=== PATIENT | male | born 1985 | race Hispanic/Latino ===

== ENCOUNTER 2017-10-29 12:08 | Inpatient (IN) | payer SELFPAY ==
[2017-10-29 12:51] LABS: #Lymphocytes 0.8 thou/uL (1.20-3.40); #Monocytes 0.3 thou/uL (0.11-0.59); #Neutrophils 5.3 thou/uL (1.40-6.50); %Basophils 0.2 % (0.0-1.0); %Eosinophils 0.1 % (0.0-10.0); %Lymphocytes 12.7 % (21.0-51.0); %Monocytes 4.6 % (0.0-10.0); Hematocrit 44.5 % (42.0-52.0); Mean Platelet Volume 7.3 fL (7.4-10.4); Red Blood Cell (RBC) Count 4.52 mill/uL (4.70-6.10); White Blood Cell (WBC) Count 6.4 thou/uL (4.8-10.8)
[2017-10-29 13:09] LABS: ALT (SGPT) 114 U/L (8-55); AST (SGOT) 184 U/L (5-34); Alkaline Phosphatase 147 U/L (40-150); Anion Gap 15 mmol/L (10-20); BUN (Urea Nitrogen) 7 mg/dL (8.9-20.6); Bilirubin, Total 0.7 mg/dL (0.2-1.2); Calc. Creatinine Clearance 0 mL/min (70-130); Calcium 9.5 mg/dL (7.8-10.44); Carbon Dioxide 30 mmol/L (22-29); Chloride 96 mmol/L (98-107); Estimated GFR-MDRD Greater than 90; Globulin 3.8 g/dL (2.4-3.5); Protein, Total 8.2 g/dL (6.0-8.3)
[2017-10-29] MEDS ORDERED: Morphine 4 MG/ML VIAL ONE (13:15)
[2017-10-29] MEDS ORDERED: Ondansetron HCl/PF 4 MG/2 ML Vial ONE (13:15)
[2017-10-29 13:22] LABS: Lipase 2036 U/L (8-78)
[2017-10-29 13:26] LABS: Prothrombin Time 13.8 SEC (12.0-14.7)
[2017-10-29 13:27] LABS: PTT 30.9 SEC (22.9-36.1)
[2017-10-29 13:29] LABS: Troponin I Less than 0.010 ng/mL (< 0.028)
[2017-10-29 13:31] LABS: Bilirubin Small (Negative); Blood, Urine Negative (Negative); Glucose, Urine (Dipstick) Negative (Negative); Ketone, Urine Trace mg/dL (Negative); Nitrite Negative (Negative); Protein, Urine (Dipstick) 100 mg/dL (Neg-Trace)
[2017-10-29 13:33] LABS: Bacteria/HPF None Seen HPF (None Seen); Hyaline Casts/LPF 4-6 HYALINE CAST LPF (0-3 Hyaline); RBC/HPF 0-3 HPF (0-3); Squamous Epithelial 0-3 HPF (0-3); WBC/HPF 0-3 HPF (0-3)
--- NOTE | 2017-10-29 14:27 | ULT ---
GALLBLADDER ULTRASOUND: HISTORY: Abdominal pain. Pancreatitis. FINDINGS: Real-time images of the upper abdomen were performed that show a normal-appearing gallbladder. The c ommon duct is 2-3 mm. Technologist reports a negative ultrasound Santana's sign. The liver shows fatty change that measures 18 cm in length. The right kidney is normal in size and n ot obstructed. Pancreas is fairly well visualized. The pancreatic tail is obscured. No abnormaliti es are seen. IMPRESSION: 1. Fatty changes of the liver. 2. No evidence of gallstones. POS: [facility]
--- NOTE | 2017-10-29 14:52 | CT ---
CT ABDOMEN AND PELVIS WITH IV CONTRAST: HISTORY: Abdominal pain. Pancreatitis. FINDINGS: No comparison. The lung bases are clear. Stranding within the central abdomen is centered around the pancreas with a small amount of free fluid adjacent to the pancreas. At the level of the pancreatic head, there is a focal rounded low-density lesion that is 0.6 cm diameter. This may represent a small pancreatic c yst or choledochocele. No intrahepatic biliary dilatation is evident. The spleen, kidneys, and adre nal glands are within normal limits. Non-specific lymph nodes are scattered throughout the retroperit oneum. Urinary bladder is incompletely distended. IMPRESSION: Acute pancreatitis. POS: [facility]
[2017-10-29] MEDS ORDERED: ISOVUE-370 76%-LOCM 1 ML ONE (15:53)
[2017-10-29 16:50] VITALS: BMI 25.0
[2017-10-29] MEDS ORDERED: Ondansetron ODT 4 MG TAB PO PRN (16:57)
[2017-10-29] MEDS: Nicotine 14 MG PATCH TD SCH (17:28)
[2017-10-29] MEDS ORDERED: Morphine 4 MG/ML VIAL SLOW IVP PRN (18:00)
[2017-10-29] MEDS: Sodium Chloride 0.9% 1,000 ML IV SCH (18:35)
[2017-10-29] MEDS: Multivitamins, Adult 10 ML, Folic Acid 1 MG, Thiamine HCl 100 MG in Dextrose 5 %-0.45 %... IV SCH ×4 (18:36)
--- NOTE | 2017-10-29 23:33 | HP-2 ---
DATE OF ADMISSION: 10/29/2017 DATE OF SERVICE: 10/29/2017 CODE STATUS: FULL. PRIMARY CARE PHYSICIAN: None. ATTENDING: Dr. Jana Danielle. PGY1: Dr. Anali Moss. HISTORIAN: Patient. CHIEF COMPLAINT: Abdominal pain. HISTORY OF PRESENT ILLNESS: A 32-year-old male with no past medical history, who presents with acute abdominal pain that started this morning. The patient said he woke up this morning, had one beer an d experienced acute, sharp, constant pain in the midepigastric region and also radiating to the left side. The patient also had one episode of watery, nonbloody diarrhea. The patient states he has nev er had this type of abdominal pain before. He did not take anything for the pain. He denies nausea and vomiting. He says his last drink was this morning, which he had one beer. In the ER, the patient had 1 liter of normal saline, 4 mg IV morphine and Zofran. PAST MEDICAL HISTORY: The patient reports a history of seizures, one of which he says was from alcoh ol withdrawal, which was about 1.5 years ago. PAST SURGICAL HISTORY: The patient had a corneal abrasion. ALLERGIES: None. MEDICATIONS: None. FAMILY HISTORY: Hypertension and diabetes in his paternal grandparents. SOCIAL HISTORY: He states he drinks 6-pack a day, but will often drink more than on the weekends. D enies drug use. Has a 6-pack year smoking history. REVIEW OF SYSTEMS: General: Denies fevers and chills. Denies weight changes or sleep changes or ni ght sweats. Respiratory: Denies cough, congestion, shortness of breath. Cardiovascular: Denies ch est pain, palpitations. GI: Denies nausea and vomiting, endorses one episode of watery diarrhea. E ndorses abdominal pain. Denies constipation. Genitourinary: Denies dysuria. Skin: Denies rashes, itching or jaundice. Musculoskeletal: Denies pain in his bilateral upper and lower extremities. N eurologic: Denies weakness, numbness, syncope. Endorses some tremulous tremors bilaterally in his h ands. Psychiatric: Denies anxiety or depression. PHYSICAL EXAMINATION: VITAL SIGNS: Blood pressure 113/64, pulse is 73, respiratory rate 20, T-max 98.5, pulse ox 98% on ro om air, current weight 75 kilograms. GENERAL: Alert and oriented x3, in no apparent distress, thin, appropriately interactive. EYES: Pupils are equal, round and reactive to light and accommodation. Extraocular muscles are inta ct. ENT: Nasal mucosa within normal limits. Oropharynx within normal limits. NECK: Supple, no lymphadenopathy or thyromegaly. CARDIOVASCULAR: Regular rate and rhythm. No murmurs, rubs or gallops appreciated, 2+ radial and ped al pulses bilaterally. RESPIRATORY: Normal effort. Clear to auscultation bilaterally. No retractions. No wheezing, rhonc hi, or rales. ABDOMEN: Soft, tender to palpation in the midepigastric region and the left upper quadrant. Hypoact amina bowel sounds. No masses or distention. MUSCULOSKELETAL: Structure within normal limits. NEUROLOGIC: No focal deficits. Cranial nerves II-XII intact. GCS of 15. PSYCHIATRIC: Appropriate. LABORATORY DATA: CBC: White blood cell count 6.4, hemoglobin 15, hematocrit 44.5, platelets 51. CMP: Sodium 137, potassium 4, chloride 96, bicarbonate 30, BUN 7, creatinine 0.67, glucose 116, AST 184, ALT 114, LDH 264. Coag panel: PT 13.8, INR 1, PTT 30.9. Lipase 2036. CK 137, CK-MB 1. Troponin less than 0.01. UA: Protein 100, leukocyte esterase trace, ketones trace, white blood cells 0-3, bacteria none. Glu cose, red blood cells, nitrites and blood were negative. Bilirubin small. Right upper quadrant abdominal ultrasound: No evidence of gallstones. Evidence of fatty liver carcamo es. Abdominal CT: Evidence of pancreatitis with stranding in the central abdomen with a small amount of free fluid. ASSESSMENT AND PLAN: A 32-year-old male with past medical history of alcohol use, status post 1 seiz ure episode from alcohol withdrawal, presents with acute onset abdominal pain with a lipase of 2035, admitted for acute pancreatitis and alcohol withdrawal. 1. Acute pancreatitis. The patient was made n.p.o. The patient was placed on maintenance fluids at 150 mL an hour of normal saline. The patient was provided with 1 liter of fluid bolus in the ER. H e was provided with morphine 2 mg q.2 hours p.r.n. As mentioned before, right upper quadrant and abd ominal CT were done, showing no evidence of gallstone or acute pancreatitis. The patient was made n. p.o. overnight for a bowel rest. A lipid panel, hepatitis C, HIV, RPR were all ordered. The patient was provided with Zofran and Phenergan p.r.n. for nausea. 2. Alcohol withdrawal. The patient was placed on ASE protocol, was provided with Ativan 1 mg q.4 ho urs p.r.n. The patient will be managed with CIWA protocol as well. He was provided with a banana ba g. 3. Acute fatty liver disease. The patient had elevated liver enzymes, AST 186, ALT 114. The patien t was educated on the effects of alcohol abuse on the liver. We will continue to monitor the patient 's labs. 4. Thrombocytopenia secondary to alcohol abuse causing bone marrow suppression. We will continue to trend his platelets with daily CBCs. DISPOSITION AND LENGTH OF HOSPITAL STAY: Two days. Symptomatic medications will be provided. History and physical exam as well as management was discussed with Dr. Jana Danielle.
[2017-10-30] MEDS: Sodium Chloride 0.9% 1,000 ML IV SCH ×4 (01:23→23:23)
[2017-10-30] MEDS: Lorazepam 2 MG/ML VIAL SLOW IVP PRN (05:01)
[2017-10-30 05:11] LABS: #Lymphocytes 0.4 thou/uL (1.20-3.40); #Monocytes 0.3 thou/uL (0.11-0.59); #Neutrophils 2.8 thou/uL (1.40-6.50); %Eosinophils 0.2 % (0.0-10.0); %Lymphocytes 12.1 % (21.0-51.0); %Monocytes 8.1 % (0.0-10.0); Hematocrit 41.4 % (42.0-52.0); Mean Platelet Volume 7.5 fL (7.4-10.4); White Blood Cell (WBC) Count 3.6 thou/uL (4.8-10.8)
[2017-10-30 05:19] LABS: ALT (SGPT) 77 U/L (8-55); LDH 186 U/L (125-220)
[2017-10-30 05:23] LABS: Anion Gap 15 mmol/L (10-20); BUN (Urea Nitrogen) 6 mg/dL (8.9-20.6); Calc. Creatinine Clearance 141 mL/min (70-130); Calcium 9.4 mg/dL (7.8-10.44); Carbon Dioxide 26 mmol/L (22-29); Chloride 96 mmol/L (98-107); Estimated GFR-MDRD Greater than 90; Magnesium 1.7 mg/dL (1.6-2.6)
[2017-10-30 05:31] LABS: Phosphorus 1.9 mg/dL (2.3-4.7)
[2017-10-30 05:50] LABS: Lipase 1263 U/L (8-78)
--- NOTE | 2017-10-30 06:56 | PDOC.FM ---
- Subjective Subjective: Patient is doing well this morning without anxiety. Abdominal pain is mild. No N/V. - Objective MAR Reviewed: Yes Vital Signs & Weight: Vital Signs (12 hours) Temp Pulse Resp BP BP Pulse Ox 10/30/17 03:34 98.5 F 71 18 129/78 97 10/30/17 00:00 98.1 F 71 18 128/78 129/78 97 10/29/17 21:08 99 F 80 18 123/75 97 10/29/17 20:00 99 F 80 18 123/75 97 I&O: 10/28/17 10/29/17 10/30/17 06:59 06:59 06:59 Intake Total 1800 Balance 1800 Result Diagrams: 10/30/17 04:37 10/30/17 04:37 Phys Exam - Physical Examination Constitutional: NAD HEENT: moist MMs, sclera anicteric, oral pharynx no lesions Neck: no nodes, no JVD Respiratory: no wheezing, no rales, no rhonchi, clear to auscultation bilateral Cardiovascular: RRR, no significant murmur Gastrointestinal: soft mild guarding, moderate tenderness in epigastric and LUQ tenderness Musculoskeletal: no edema Neurological: moves all 4 limbs No asterixis, no tremors Psychiatric: A&O x 3 Skin: cap refill <2 seconds Dx/Plan (1) Acute pancreatitis Code(s): K85.90 - ACUTE PANCREATITIS WITHOUT NECROSIS OR INFECTION, UNSP Status: Acute (2) Alcohol withdrawal syndrome Code(s): F10.239 - ALCOHOL DEPENDENCE WITH WITHDRAWAL, UNSPECIFIED Status: Acute (3) Thrombocytopenia Code(s): D69.6 - THROMBOCYTOPENIA, UNSPECIFIED Status: Acute (4) Elevated transaminase level Code(s): R74.0 - NONSPEC ELEV OF LEVELS OF TRANSAMNS & LACTIC ACID DEHYDRGNSE Status: Acute - Plan Plan: Acute Pancreatitis - NPO for 24 hours, will advance to clears at lunch - IVF as long as NPO - morphine for pain Alcohol Dependence - encourage cessation - CM to provide resources - ASE protocol Fatty Liver with Elevated Transaminases - encourage ETOH cessation - educate on progression Thrombocytopenia - likely 2/2 ETOH suppression of Bone marrow Macrocytosis - B12, folate pending Hypophosphatemia - replace and recheck - 2/2 chronic alcohol use
[2017-10-30] MEDS ORDERED: FLU VACC QS2017-18 36 mo. & older 0.5 ML SYRINGE IM ONE (09:00)
--- NOTE | 2017-10-30 14:40 | ADD-PRG ---
DATE OF SERVICE: 10/30/2017 Please add it as an addendum to the note of Dr. Denita Antonio. Mr. Franklin looks and feels much better th is morning. He was admitted yesterday with acute pancreatitis secondary to alcohol. He also has fat ty liver demonstrated on ultrasound with elevations of his AST and ALT. We had a long discussion abo ut his drinking and the fact that it would destroy his liver if it continues. In the event, he feels better this morning, and we will begin to give him clear liquids later today. His pain is much abat ed. He is not nauseated.
[2017-10-30] MEDS: Multivitamins, Adult 10 ML, Folic Acid 1 MG, Thiamine HCl 100 MG in Dextrose 5 %-0.45 %... IV SCH ×4 (17:24)
[2017-10-30] MEDS: Nicotine 14 MG PATCH TD SCH (17:25)
[2017-10-31] MEDS: Lorazepam 2 MG/ML VIAL SLOW IVP PRN ×5 (04:18→23:24)
[2017-10-31] MEDS: Sodium Chloride 0.9% 1,000 ML IV SCH ×3 (05:44→15:12)
[2017-10-31 05:53] LABS: Anion Gap 11 mmol/L (10-20); BUN (Urea Nitrogen) 4 mg/dL (8.9-20.6); Calc. Creatinine Clearance 170 mL/min (70-130); Carbon Dioxide 27 mmol/L (22-29); Chloride 99 mmol/L (98-107); Estimated GFR-MDRD Greater than 90; Magnesium 1.9 mg/dL (1.6-2.6); Phosphorus 2.2 mg/dL (2.3-4.7)
[2017-10-31 06:04] LABS: #Lymphocytes 0.5 thou/uL (1.20-3.40); #Monocytes 0.4 thou/uL (0.11-0.59); #Neutrophils 2.7 thou/uL (1.40-6.50); %Basophils 0.2 % (0.0-1.0); %Eosinophils 0.9 % (0.0-10.0); %Lymphocytes 12.5 % (21.0-51.0); %Monocytes 11.6 % (0.0-10.0); Red Blood Cell (RBC) Count 3.83 mill/uL (4.70-6.10); White Blood Cell (WBC) Count 3.6 thou/uL (4.8-10.8)
--- NOTE | 2017-10-31 06:24 | PDOC.FM ---
- Subjective Subjective: Patient is doing well this morning. He reports only mild abdominal pain with movements but not increased with food intake. Has tolerated a clear liquid diet yesterday. Does report some diarrhea today. Otherwise, denies anxiety, CP , trouble walking, and reports he wants to go home. - Objective MAR Reviewed: Yes Vital Signs & Weight: Vital Signs (12 hours) Temp Pulse Resp BP BP Pulse Ox 10/31/17 03:54 131/67 10/31/17 03:11 98.6 F 70 16 131/67 97 10/31/17 00:00 126/70 10/30/17 23:21 98.9 F 64 16 126/70 97 10/30/17 20:00 98.7 F 83 16 132/78 10/30/17 18:55 98.7 F 83 16 132/78 97 I&O: 10/29/17 10/30/17 10/31/17 06:59 06:59 06:59 Intake Total 1800 3750 Balance 1800 3750 Result Diagrams: 10/31/17 05:17 10/31/17 05:17 Phys Exam - Physical Examination Constitutional: NAD HEENT: PERRLA, sclera anicteric Neck: no nodes, no JVD Respiratory: no wheezing, no rales, no rhonchi, clear to auscultation bilateral Cardiovascular: RRR, no significant murmur Gastrointestinal: soft, non-tender, no distention, positive bowel sounds Musculoskeletal: no edema, pulses present Neurological: non-focal, normal sensation, moves all 4 limbs mild tremors Psychiatric: normal affect, A&O x 3 Skin: cap refill <2 seconds Dx/Plan (1) Acute pancreatitis Code(s): K85.90 - ACUTE PANCREATITIS WITHOUT NECROSIS OR INFECTION, UNSP Status: Acute (2) Alcohol withdrawal syndrome Code(s): F10.239 - ALCOHOL DEPENDENCE WITH WITHDRAWAL, UNSPECIFIED Status: Acute (3) Thrombocytopenia Code(s): D69.6 - THROMBOCYTOPENIA, UNSPECIFIED Status: Acute (4) Elevated transaminase level Code(s): R74.0 - NONSPEC ELEV OF LEVELS OF TRANSAMNS & LACTIC ACID DEHYDRGNSE Status: Acute - Plan Plan: Acute Pancreatitis - NPO for 24 hours, will advance to clears at lunch - IVF as long as NPO - morphine for pain Alcohol Dependence - encourage cessation - CM to provide resources - ASE protocol Fatty Liver with Elevated Transaminases - encourage ETOH cessation - educate on progression Thrombocytopenia - likely 2/2 ETOH suppression of Bone marrow Macrocytosis - B12, folate pending Hypophosphatemia - replace and recheck - 2/2 chronic alcohol use
[2017-10-31] MEDS ORDERED: Potassium Chloride 20 MEQ TAB PO SCH (06:30)
[2017-10-31 06:45] LABS: ALT (SGPT) 58 U/L (8-55); AST (SGOT) 77 U/L (5-34); Alkaline Phosphatase 95 U/L (40-150); Bilirubin, Direct 0.8 mg/dL (0.1-0.3); Bilirubin, Total 1.7 mg/dL (0.2-1.2); Protein, Total 6.7 g/dL (6.0-8.3)
[2017-10-31] MEDS ORDERED: Diazepam 10 MG/2 ML SYRINGE IVP SCH ×2 (12:30→14:15)
[2017-10-31] MEDS: Diazepam 10 MG/2 ML SYRINGE IVP PRN ×4 (13:21→23:55)
--- NOTE | 2017-10-31 14:21 | ADD-PRG ---
ADDENDUM: 10/31/2017 This is an addendum to the note of Dr. Denita Antonio. Mr. Franklin is completely awake and alert this morn ing. Was slightly tremulous last night, but this responded very well to one dose of Ativan. He is t olerating a regular diet and has no abdominal pain or nausea. He will be discharged today.
--- NOTE | 2017-10-31 14:27 | PDOC.EVN ---
Event Note - Event Note Event Note: Was notified around 1215 of patient having increased agitation, mildly combative behavior, tachycardia, diaphoresis, and visual hallucinations. Patient threw all of his bed linens off due to seeing bugs all over the place. When I went to observe the patient, he is mildly hypertensive, tachycardic, and agitated. Calculated CIWA score of 23. Patient was given 5mg Valium IV then checked on 15 min later where his CIWA score remained 23. He was then given 10mg Valium IV. Again, patient was checked on about thirty minutes later, and still has CIWA score of 21. At this time, we will give 5mg Valium IV and transfer to ICU with past hx of alcohol withdrawal seizures. Patient will require 1 on 1 attention and may need a sitter.
--- NOTE | 2017-10-31 17:20 | ADD-PRG ---
ADDENDUM: 10/31/2017 This is an addendum to the event note of Dr. Denita Antonio. We had been on morning rounds this morning with Mr. Franklin. At that time, he was awake, alert, and in no distress. He was not "fidgety," anxiou s or tachycardic. We were arranging for his discharge from the hospital. At approximately 12:15, garrett, we were called and told the patient was very agitated, diaphoretic, tachycardic, and was havin g visual hallucinations and that he was seeing bugs on his bed. These symptoms were quite consistent with delirium tremens. He was given several dosages of intravenous Valium, but maintained a relativ sophia high CIWA score of 23. It was then elected to transfer him to the MICU for telemetry, closer obs ervation and possibly arranging the presence of a sitter. I examined Mr. Franklin at approximately 4:00 this afternoon. By that time, the hallucinations had cease d. He was still slightly anxious and agitated, but cooperative and in no other acute distress. His vital signs at that time, blood pressure was 120/70, respirations were 20, pulse rate was 100, temper ature was 99.7. Cardiac: His heart rhythm is regular. Rate is approximately 90. Lungs: Clear to auscultation. No rales or wheezes. No respiratory distress. Abdomen: Flat and soft. No guarding, rebound or rigidity. No epigastric pain. From a neurological standpoint, he has no focal deficits. He is alert and oriented. He appears slig htly anxious, but answers questions appropriately. He is, at this time, not having visual hallucinat ions. ASSESSMENT: Delirium tremens. PLAN: Transfer to ICU. Continue to use high dosages of benzos if needed to control symptoms. Reche ck electrolytes, monitor on telemetry. Consider anti-seizure medication as he does have a history of alcohol withdrawal seizures.
[2017-10-31] MEDS: Nicotine 14 MG PATCH TD SCH (19:18)
[2017-10-31] MEDS: Multivitamins, Adult 10 ML, Folic Acid 1 MG, Thiamine HCl 100 MG in Dextrose 5 %-0.45 %... IV SCH ×4 (19:53)
[2017-11-01] MEDS: Diazepam 10 MG/2 ML SYRINGE IVP PRN ×3 (00:19→12:48)
[2017-11-01] MEDS: Sodium Chloride 0.9% 1,000 ML IV SCH ×3 (01:00→05:34)
[2017-11-01] MEDS ORDERED: Succinylcholine Chloride 20 MG/ML 10 ml SYRINGE FS ONE (01:00)
[2017-11-01] MEDS: Promethazine HCl 25 MG/ML VIAL IM PRN (01:00)
[2017-11-01] MEDS: Lorazepam 2 MG/ML VIAL SLOW IVP PRN (01:00)
[2017-11-01] MEDS: Midazolam HCl 2 mg/2 ml Vial ONE ×3 (01:10→01:21)
[2017-11-01] MEDS: Haloperidol Lactate 5 MG/ML VIAL ONE (01:10)
[2017-11-01] MEDS ORDERED: Labetalol HCl 100 MG/20 ML VIAL SLOW IVP PRN (01:19)
[2017-11-01] MEDS ORDERED: Propofol 1,000 MG/100 ML VIAL IV ONE (01:24)
[2017-11-01] MEDS ORDERED: Midazolam HCl 2 mg/2 ml Vial ONE (01:24)
[2017-11-01 02:27] LABS: Oxyhemoglobin 96.7 % (94.0-97.0); Sodium 140 mmol/L (135-148)
[2017-11-01 03:10] LABS: Mechanical Tidal Volume 500 ml; Mode SIMV; Pressure Support 10 cmH2O; Vent YES
--- NOTE | 2017-11-01 04:01 | PDOC.EVN ---
Event Note - Event Note Event Note: Endotracheal Intubation Indication and Summary Residents paged to the bedside at approximately 0100. Patient was becoming increasingly agitated despite q15 min administration of IV diazepam and ativan. He was thrashing despite 4-point soft restraints and required approximately 6 nursing staff at the bedside in order to keep him in the bed and from pulling out his IVs. Patient was diaphoretic and pulse climbed to 180s-190s bpm. He was having visual and auditory hallucinations, was combative and urinated on himself at which point versed and haldol were administered IV with temporary sedation. At that time, it was decided by primary team with nursing input that patient required intubation in order to protect his airway and provide adequate sedation and alcohol withdrawl treatment. ET tube intubation was performed with propofol and succinylcholine induction and he was started on propofol and versed drip. His pulse quickly lowered to the low 100s and blood pressure normalized. Dr. Ziegler was notified and Dr. Gutiérrez was at the bedside for intubation.
[2017-11-01] MEDS ORDERED: Sedation Protocol FS ONE (04:20)
[2017-11-01] MEDS ORDERED: Fentanyl 20 MCG/ML 250 ML IVPB SCH (04:29)
[2017-11-01] MEDS ORDERED: DISCONTINUE PREVIOUS NARCOTIC PAIN MEDICATIONS AND BENZODIAZEPINES FS SCH (04:29)
[2017-11-01] MEDS ORDERED: Morphine 4 MG/ML VIAL IV PRN ×2 (04:30→04:31)
[2017-11-01 04:47] LABS: #Lymphocytes 0.7 thou/uL (1.20-3.40); #Monocytes 0.4 thou/uL (0.11-0.59); #Neutrophils 2.4 thou/uL (1.40-6.50); %Basophils 0.6 % (0.0-1.0); %Eosinophils 0.8 % (0.0-10.0); %Lymphocytes 19.7 % (21.0-51.0); Hematocrit 38.2 % (42.0-52.0); Mean Platelet Volume 8.1 fL (7.4-10.4); Red Blood Cell (RBC) Count 3.89 mill/uL (4.70-6.10); White Blood Cell (WBC) Count 3.6 thou/uL (4.8-10.8)
[2017-11-01 05:02] LABS: Anion Gap 10 mmol/L (10-20); BUN (Urea Nitrogen) Less than 4 mg/dL (8.9-20.6); Calc. Creatinine Clearance 176 mL/min (70-130); Calcium 9.3 mg/dL (7.8-10.44); Carbon Dioxide 25 mmol/L (22-29); Chloride 106 mmol/L (98-107); Estimated GFR-MDRD Greater than 90
[2017-11-01] MEDS ORDERED: Potassium Chloride 40 MEQ in Sodium Chloride 0.45% 1,000 ML IV SCH (06:00)
[2017-11-01] MEDS ORDERED: Potassium Chloride 40 MEQ in Sodium Chloride 0.9% 250 ML 250 ML IVPB SCH ×4 (06:00)
[2017-11-01] MEDS ORDERED: Potassium Chloride 40 MEQ in Premix Bag 1 BAG IVPB SCH (06:15)
--- NOTE | 2017-11-01 06:20 | PDOC.FM ---
- Subjective Subjective: Patient was to be discharged yesterday for acute pancreatitis, but shortly before discharging the patient, patient became agitated with hallucinations present. Patient was medicated for DT's with Valium and transferred to the ICU. Overnight, patient continued to be in severe withdrawal delirium with continuous hallucinations and increased agitation despite high doses of Valium. Due to his severe DT's patient was then sedated with Propofol and Versed and intubated to protect airway. Today, patient is sedated with propofol ggt at 35mg/hr and Versed ggt at 4mg/hr at the time of exam and while examining the patient and became agitated with minimal stimuli. HR is in the 90's at the time of exam. Nurse at bedside gave bolus of propofol and increased ggt back to 40mg/hr. - Objective MAR Reviewed: Yes Vital Signs & Weight: Vital Signs (12 hours) Temp Pulse Resp BP Pulse Ox 11/01/17 06:00 12 11/01/17 04:00 97.9 F 12 154/112 H 11/01/17 02:15 86 11/01/17 02:00 12 11/01/17 00:30 135/94 H 11/01/17 00:15 130/48 L 11/01/17 00:00 98.9 F 10/31/17 23:46 133/68 10/31/17 23:15 133/68 10/31/17 23:00 132/70 10/31/17 22:45 125/82 10/31/17 22:30 125/82 10/31/17 22:15 124/70 10/31/17 22:00 124/70 10/31/17 20:00 99.1 F 81 23 H 150/70 H 100 10/31/17 18:19 99 F 66 22 H Weight Weight 70.307 kg Most Recent Monitor Data Heart Rate from ECG 83 NIBP 127/80 NIBP BP-Mean 98 Respiration from ECG 0 SpO2 100 I&O: 10/30/17 10/31/17 11/01/17 06:59 06:59 06:59 Intake Total 1800 6030 1404.3 Output Total 2845 Balance 1800 6030 -1440.7 Result Diagrams: 11/01/17 03:36 11/01/17 03:36 Phys Exam - Physical Examination sedated, and increased agitation with minimal stimuli Respiratory: no wheezing, no rales, clear to auscultation bilateral tachycardic Gastrointestinal: soft Skin: cap refill <2 seconds Dx/Plan (1) Delirium tremens Code(s): F10.231 - ALCOHOL DEPENDENCE WITH WITHDRAWAL DELIRIUM Status: Acute (2) Alcohol withdrawal syndrome Code(s): F10.239 - ALCOHOL DEPENDENCE WITH WITHDRAWAL, UNSPECIFIED Status: Acute (3) Hypokalemia Code(s): E87.6 - HYPOKALEMIA Status: Acute (4) Thrombocytopenia Code(s): D69.6 - THROMBOCYTOPENIA, UNSPECIFIED Status: Acute (5) Elevated transaminase level Code(s): R74.0 - NONSPEC ELEV OF LEVELS OF TRANSAMNS & LACTIC ACID DEHYDRGNSE Status: Acute (6) Acute pancreatitis Code(s): K85.90 - ACUTE PANCREATITIS WITHOUT NECROSIS OR INFECTION, UNSP Status: Resolved - Plan Plan: Delirium Tremens - continue to try and wean Propofol ggt and Versed ggt as tolerated - banana bag q24h - continue ventilation with SIMV, Ps10, PEEP 5, and O2 30 - Dr. Ziegler consulted, appreciate recs Fatty Liver with Elevated Transaminases - encourage ETOH cessation - LFTs downtrending, will continue to monitor Thrombocytopenia - likely 2/2 ETOH suppression of Bone marrow - improving Macrocytosis - B12 wnl - Folate wnl - likely due to increased number of immature cells being produced by the bone marrow with bone marrow suppression due to alcohol Hypophosphatemia - replace and recheck - 2/2 chronic alcohol use Hypokalemia - 40meq IVP - change IVF to 1/2 NS + KCl @ 120 for 1 bag - recheck BMP this afternoon Acute Pancreatitis, resolved - resolved, patient was not complaining of abdominal pain and tolerated diet prior to intubation for DT's
[2017-11-01] MEDS: Propofol 1,000 MG/100 ML VIAL IV PRN ×5 (06:41→23:34)
[2017-11-01 07:20] LABS: ALT (SGPT) 60 U/L (8-55); AST (SGOT) 78 U/L (5-34); Alkaline Phosphatase 100 U/L (40-150); Bilirubin, Direct 0.6 mg/dL (0.1-0.3); Bilirubin, Total 1.3 mg/dL (0.2-1.2); Protein, Total 6.9 g/dL (6.0-8.3)
[2017-11-01] MEDS ORDERED: CCU Electrolyte Replacement 1 EACH FS ONE (07:23)
[2017-11-01 07:25] LABS: Phosphorus 1.8 mg/dL (2.3-4.7)
[2017-11-01] MEDS ORDERED: Magnesium 2 GM/NS 0.9% 100 ML 2 GM in Premix Bag 1 BAG IVPB PRN (07:33)
[2017-11-01] MEDS ORDERED: Potassium Phosphate 9 MMOL in Sodium Chloride 0.9% 100 ML IVPB PRN (07:33)
[2017-11-01] MEDS ORDERED: Potassium Phosphate 15 MMOL in Sodium Chloride 0.9% 250 ML 250 ML IV PRN (07:33)
[2017-11-01] MEDS ORDERED: Magnesium Oxide 400 MG TAB PO PRN ×2 (07:33)
[2017-11-01] MEDS ORDERED: Potassium Chloride 20 MEQ TAB PO PRN (07:33)
[2017-11-01] MEDS ORDERED: CCU ELECTROLYTE REPLACEMENT PROTOCOL FS PRN (07:33)
[2017-11-01] MEDS ORDERED: Potassium Chloride 40 MEQ in Premix Bag 1 BAG IVPB PRN (07:33)
[2017-11-01] MEDS ORDERED: Potassium Phosphate 12 MMOL in Sodium Chloride 0.9% 250 ML 250 ML IV PRN (07:33)
[2017-11-01 08:01] LABS: Oxyhemoglobin 96.3 % (94.0-97.0); Sodium 143 mmol/L (135-148)
[2017-11-01 08:02] LABS: Modified Allen's Test NOT DONE; Vent YES
[2017-11-01 08:03] LABS: Mechanical Tidal Volume 500 ml; Mode SIMV/PSV; Pressure Support 10 cmH2O
[2017-11-01] MEDS ORDERED: chlordiazePOXIDE HCl 25 MG CAP FS SCH (09:00)
--- NOTE | 2017-11-01 10:36 | RAD ---
PORTABLE CHEST: HISTORY: Evaluation of endotracheal and NG tubes. FINDINGS: Heart size is borderline. The lungs are clear of infiltrates. Endotracheal tube is in satisfactory p osition. There has been placement of an NG tube. The tip is below the hemidiaphragm. IMPRESSION: Endotracheal and NG tubes in satisfactory position. POS: [facility]
--- NOTE | 2017-11-01 10:36 | RAD ---
PORTABLE CHEST: HISTORY: Intubation. FINDINGS: Heart size is borderline and endotracheal tube has been placed and is in satisfactory position. The lungs are clear of infiltrates. IMPRESSION: Endotracheal tube in satisfactory position. POS: [facility]
[2017-11-01] MEDS ORDERED: Potassium Phosphate 9 MMOL in Sodium Chloride 0.9% 100 ML IVPB SCH (11:15)
--- NOTE | 2017-11-01 12:40 | ADD-PRG ---
DATE OF SERVICE: 11/01/2017 This is an addendum to the note of Dr. Denita Antonio. Late yesterday, Mr. Franklin was transferred to the ICU in active delirium tremens. He was treated initi ally with intravenous Valium around midnight became again very agitated and hallucinating. He became to the point where he needed to be intubated to protect airway and to further sedate him. He was ugarte bsequently intubated and placed on propofol drip and is currently on the ventilator this morning. Hi s vital signs appeared stable. Delirium tremens certainly now controlled on the ventilator and propo fol infusion.
[2017-11-01 13:50] LABS: Amphetamine Not Detected (NotDetected); Methadone Not Detected (NotDetected); Methamphetamine Not Detected (NotDetected)
[2017-11-01] MEDS: Nicotine 14 MG PATCH TD SCH (17:40)
[2017-11-01] MEDS ORDERED: Acetaminophen 1,000 MG in Premix Bag 1 BAG IVPB PRN (18:04)
[2017-11-01] MEDS: Multivitamins, Adult 10 ML, Folic Acid 1 MG, Thiamine HCl 100 MG in Dextrose 5 %-0.45 %... IV SCH ×4 (18:19)
[2017-11-01 19:20] LABS: BUN (Urea Nitrogen) Less than 4 mg/dL (8.9-20.6); Calc. Creatinine Clearance 146 mL/min (70-130); Calcium 9.6 mg/dL (7.8-10.44); Carbon Dioxide 27 mmol/L (22-29); Chloride 100 mmol/L (98-107); Estimated GFR-MDRD Greater than 90; Phosphorus 4.1 mg/dL (2.3-4.7)
[2017-11-01] MEDS: Sodium Chloride 0.45% 1,000 ML IV SCH ×2 (19:30→21:36)
--- NOTE | 2017-11-01 20:57 | CON ---
DATE OF CONSULTATION: 11/01/2017 HISTORY OF PRESENT ILLNESS: A 32-year-old male who has been in the hospital since 10/29/2017. He ap parently presented with abdominal pain and was found to have pancreatitis. He began having alcohol w ithdrawal and apparently, extremely combative, last time he was intubated. I was consulted. PAST MEDICAL HISTORY: Reportedly remarkable for alcohol withdrawal, seizure in the past. FAMILY HISTORY: Positive for hypertension and diabetes. SOCIAL HISTORY: He reported to the admitting physician, he drank 6 pack a day, but I suspect that he is drinking at least twice that. REVIEW OF SYSTEMS: Unobtainable. PHYSICAL EXAMINATION: GENERAL: He is sedated and intubated. VITAL SIGNS: Blood pressure 124/68, heart rate 92, respiratory rates in the 20s. HEENT: Pupils react. Sclerae is anicteric. NECK: Supple. LUNGS: Clear. HEART: Regular rhythm. ABDOMEN: Soft. EXTREMITIES: Without asymmetry. LABORATORY DATA: White count 3.6, hemoglobin 13.2, MCV is 98, platelets 63. Sodium 138, potassium 2 .8, chloride 106, bicarbonate 25, BUN less than 4, creatinine 0.6. Liver enzymes are barely elevated . Lipase has been checked since the first and was 1263. IMPRESSION: 1. Pancreatitis secondary to alcoholism, likely chronic pancreatitis. 2. History of alcohol withdrawal seizures. 3. Alcohol withdrawal, this admission. 4. Elevated liver enzymes secondary to alcohol intake. 5. Pancytopenia secondary to chronic heavy alcohol intake, most likely. PLAN: Supportive care, sedation for several days until his alcohol withdrawal windows.
[2017-11-02] MEDS: Sodium Chloride 0.45% 1,000 ML IV SCH ×2 (03:32→05:47)
[2017-11-02 04:34] LABS: ALT (SGPT) 87 U/L (8-55); AST (SGOT) 114 U/L (5-34); Alkaline Phosphatase 107 U/L (40-150); Anion Gap 13 mmol/L (10-20); BUN (Urea Nitrogen) Less than 4 mg/dL (8.9-20.6); Bilirubin, Total 1.5 mg/dL (0.2-1.2); Calc. Creatinine Clearance 149 mL/min (70-130); Calcium 9.2 mg/dL (7.8-10.44); Carbon Dioxide 27 mmol/L (22-29); Chloride 99 mmol/L (98-107); Estimated GFR-MDRD Greater than 90; Globulin 3.7 g/dL (2.4-3.5); Magnesium 1.8 mg/dL (1.6-2.6); Phosphorus 3.7 mg/dL (2.3-4.7); Protein, Total 7.6 g/dL (6.0-8.3)
[2017-11-02 04:43] LABS: #Lymphocytes 1.4 thou/uL (1.20-3.40); #Monocytes 1.1 thou/uL (0.11-0.59); #Neutrophils 6.5 thou/uL (1.40-6.50); %Basophils 0.2 % (0.0-1.0); %Eosinophils 0.2 % (0.0-10.0); %Lymphocytes 15.6 % (21.0-51.0); %Monocytes 12.4 % (0.0-10.0); Hematocrit 42.9 % (42.0-52.0); Mean Platelet Volume 7.1 fL (7.4-10.4); Red Blood Cell (RBC) Count 4.37 mill/uL (4.70-6.10); White Blood Cell (WBC) Count 9.1 thou/uL (4.8-10.8)
[2017-11-02] MEDS: Potassium Chloride 40 MEQ in Sodium Chloride 0.9% 250 ML 250 ML IVPB PRN (05:48)
[2017-11-02] MEDS: Propofol 1,000 MG/100 ML VIAL IV PRN ×4 (05:51→23:35)
--- NOTE | 2017-11-02 07:13 | PDOC.FM ---
- Subjective Subjective: Pt is sedated and on mechanical ventilation. He continues to have periods of agitation despite being sedated. No adverse events overnight. - Objective MAR Reviewed: Yes Vital Signs & Weight: Vital Signs (12 hours) Temp Pulse Resp BP Pulse Ox 11/02/17 06:00 12 11/02/17 04:00 99.4 F 22 H 125/83 11/02/17 03:27 123 H 11/02/17 02:00 14 11/02/17 00:00 100.1 F H 13 11/01/17 23:19 113 H 11/01/17 22:00 12 11/01/17 20:00 16 110/73 11/01/17 19:41 101 F H 121 H 16 97 Weight Weight 70.307 kg Most Recent Monitor Data Heart Rate from ECG 106 NIBP 112/70 NIBP BP-Mean 83 Respiration from ECG 12 SpO2 98 I&O: 11/01/17 11/02/17 11/03/17 06:59 06:59 06:59 Intake Total 1404.3 3303.6 Output Total 2845 2920 Balance -1440.7 383.6 Result Diagrams: 11/02/17 03:53 11/02/17 03:53 <Danay Andujar - Last Filed: 11/02/17 10:22> - Objective Vital Signs & Weight: Vital Signs (12 hours) Temp Pulse Resp BP Pulse Ox 11/02/17 14:00 18 11/02/17 12:00 99.9 F H 24 H 118/55 L 11/02/17 11:39 120 H 109/58 L 11/02/17 10:00 20 11/02/17 08:00 99.4 F 25 H 11/02/17 07:21 99.4 F 104 H 12 98 11/02/17 07:10 105 H 112/70 11/02/17 06:00 12 11/02/17 04:00 99.4 F 22 H 125/83 11/02/17 03:27 123 H Weight Admit Weight 70.307 kg Weight 70.307 kg Most Recent Monitor Data Heart Rate from ECG 123 NIBP 135/60 NIBP BP-Mean 99 Respiration from ECG 18 SpO2 100 I&O: 11/01/17 11/02/17 11/03/17 06:59 06:59 06:59 Intake Total 1404.3 3303.6 0 Output Total 2845 2920 826 Balance -1440.7 383.6 -826 Result Diagrams: 11/02/17 03:53 11/02/17 03:53 <Geovanny Mcdonough - Last Filed: 11/02/17 14:25> Phys Exam - Physical Examination Constitutional: NAD HEENT: PERRLA Neck: no JVD Respiratory: clear to auscultation bilateral tachycardic Gastrointestinal: soft, non-tender Musculoskeletal: no edema sedated Skin: no rash <Danay Andujar - Last Filed: 11/02/17 10:22> Dx/Plan (1) Delirium tremens Code(s): F10.231 - ALCOHOL DEPENDENCE WITH WITHDRAWAL DELIRIUM Status: Acute Plan: Pt remains agitated despite continuous sedation. Remains slightly tachycardic. Will continue sedation and ET intubation until ADDI resolves. (2) Alcohol withdrawal syndrome Code(s): F10.239 - ALCOHOL DEPENDENCE WITH WITHDRAWAL, UNSPECIFIED Status: Acute QualifierTitle: Complication of substance-induced condition: with delirium Qualified Code(s): F10.231 - Alcohol dependence with withdrawal delirium Plan: Same as above. (3) Elevated transaminase level Code(s): R74.0 - NONSPEC ELEV OF LEVELS OF TRANSAMNS & LACTIC ACID DEHYDRGNSE Status: Acute Plan: slight increase in transaminases compared to yesterday, however, not increased compared to admisstion. Will continue to monitor. (4) Thrombocytopenia Code(s): D69.6 - THROMBOCYTOPENIA, UNSPECIFIED Status: Acute Plan: Likely 2/2 to alcohol abuse. Improving. (5) Acute pancreatitis Code(s): K85.90 - ACUTE PANCREATITIS WITHOUT NECROSIS OR INFECTION, UNSP Status: Resolved Plan: Pt was tolerating diet prior to intubation. Will consider trickle feeds as pt is currently NPO. (6) Hypokalemia Code(s): E87.6 - HYPOKALEMIA Status: Acute Plan: Electrolyte replacement protocol in place. <Danay Andujar - Last Filed: 11/02/17 10:22> Attending Addendum - Attending Addendum I personally evaluated the patient and discussed the management with Dr. Andujar. I agree with the History, Examination, Assessment and Plan documented above with any addition or exceptions noted below. Will change IV fluid to NS and give 500ml bolus. Tachycardia may be related to dehydration or DTs. <Geovanny Mcdonough - Last Filed: 11/02/17 14:25>
[2017-11-02] MEDS: Sodium Chloride 0.9% 1,000 ML IV SCH ×2 (10:15→17:48)
[2017-11-02] MEDS ORDERED: Sodium Chloride 0.9% 500 ML IV SCH (10:30)
--- NOTE | 2017-11-02 15:04 | PRG ---
DATE OF SERVICE: 11/02/2017 SUBJECTIVE: Mr. Franklin did hemodynamically okay overnight. OBJECTIVE: VITAL SIGNS: His blood pressure 109/59, heart rate is 116, respiratory rate is in the 20s, oximetry is 100%. LUNGS: Clear. HEART: Regular rhythm. ABDOMEN: Soft. EXTREMITIES: Without asymmetry. Intake and output is positive 383. LABORATORY DATA: White count 9.1, hemoglobin 14.7, platelets 105. Sodium 136, potassium 3.1, chlori de 99, bicarbonate 27, BUN less than 4, creatinine 0.7. IMPRESSION: 1. Respiratory failure associated with alcohol withdrawal. 2. Acute on chronic pancreatitis. 3. Alcoholism. 4. Protein malnutrition (BUN less than 4). PLAN: Continue sedation through with alcohol withdrawal several more days.
[2017-11-02] MEDS: Multivitamins, Adult 10 ML, Folic Acid 1 MG, Thiamine HCl 100 MG in Dextrose 5 %-0.45 %... IV SCH ×4 (16:48)
[2017-11-02] MEDS: Nicotine 14 MG PATCH TD SCH (17:45)
[2017-11-03] MEDS: Sodium Chloride 0.9% 1,000 ML IV SCH ×3 (01:08→22:43)
[2017-11-03 04:48] LABS: #Lymphocytes 0.7 thou/uL (1.20-3.40); #Monocytes 1.1 thou/uL (0.11-0.59); #Neutrophils 7.4 thou/uL (1.40-6.50); %Basophils 0.2 % (0.0-1.0); %Monocytes 12.1 % (0.0-10.0); Hematocrit 40.1 % (42.0-52.0); Mean Platelet Volume 7.1 fL (7.4-10.4); Red Blood Cell (RBC) Count 4.06 mill/uL (4.70-6.10); White Blood Cell (WBC) Count 9.2 thou/uL (4.8-10.8)
[2017-11-03] MEDS: Propofol 1,000 MG/100 ML VIAL IV PRN ×4 (04:58→22:43)
[2017-11-03 05:24] LABS: ALT (SGPT) 57 U/L (8-55); AST (SGOT) 73 U/L (5-34); Alkaline Phosphatase 95 U/L (40-150); Anion Gap 13 mmol/L (10-20); BUN (Urea Nitrogen) 5 mg/dL (8.9-20.6); Bilirubin, Total 1.6 mg/dL (0.2-1.2); Calc. Creatinine Clearance 146 mL/min (70-130); Calcium 8.8 mg/dL (7.8-10.44); Carbon Dioxide 26 mmol/L (22-29); Chloride 100 mmol/L (98-107); Estimated GFR-MDRD Greater than 90; Globulin 3.4 g/dL (2.4-3.5)
[2017-11-03] MEDS: Potassium Chloride 40 MEQ in Sodium Chloride 0.9% 250 ML 250 ML IVPB PRN (06:33)
--- NOTE | 2017-11-03 06:41 | PDOC.FM ---
- Subjective Subjective: Pt continues to be agitated during sedation holidays. He is currently sedated. No adverse events overnight. - Objective MAR Reviewed: Yes Vital Signs & Weight: Vital Signs (12 hours) Temp Pulse Resp Pulse Ox 11/03/17 06:00 12 11/03/17 04:00 99.6 F 21 H 11/03/17 02:28 123 H 11/03/17 02:00 17 11/03/17 00:32 131 H 11/03/17 00:00 99.6 F 21 H 11/02/17 22:00 14 11/02/17 21:48 110 H 11/02/17 19:45 12 11/02/17 19:23 101.2 F H 106 H 12 100 11/02/17 19:00 101.2 F H 11/02/17 18:50 115 H Weight Admit Weight 70.307 kg Weight 70.307 kg Most Recent Monitor Data Heart Rate from ECG 108 NIBP 104/59 NIBP BP-Mean 71 Respiration from ECG 25 SpO2 100 I&O: 11/01/17 11/02/17 11/03/17 06:59 06:59 06:59 Intake Total 1404.3 3303.6 5394.3 Output Total 2845 2920 3185 Balance -1440.7 383.6 2209.3 Result Diagrams: 11/03/17 03:37 11/03/17 03:37 <Danay Andujar - Last Filed: 11/03/17 10:51> - Objective Vital Signs & Weight: Vital Signs (12 hours) Temp Pulse Resp Pulse Ox 11/03/17 12:00 103 F H 27 H 11/03/17 10:00 36 H 11/03/17 08:00 101.1 F H 103 H 18 93 L 11/03/17 06:00 12 11/03/17 04:00 99.6 F 21 H 11/03/17 02:28 123 H 11/03/17 02:00 17 Weight Admit Weight 70.307 kg Weight 70.307 kg Most Recent Monitor Data Heart Rate from ECG 98 NIBP 130/88 NIBP BP-Mean 105 Respiration from ECG 10 SpO2 100 I&O: 11/02/17 11/03/17 11/04/17 06:59 06:59 06:59 Intake Total 3303.6 5394.3 250 Output Total 2920 3185 455 Balance 383.6 2209.3 -205 Result Diagrams: 11/03/17 03:37 11/03/17 03:37 <Geovanny Mcdonough - Last Filed: 11/03/17 13:45> Phys Exam - Physical Examination Respiratory: clear to auscultation bilateral tachycardic Gastrointestinal: soft, no distention Musculoskeletal: no edema Skin: no rash, normal turgor <Danay Andujar - Last Filed: 11/03/17 10:51> Dx/Plan (1) Delirium tremens Code(s): F10.231 - ALCOHOL DEPENDENCE WITH WITHDRAWAL DELIRIUM Status: Acute Plan: Pt remains agitated despite continuous sedation. Remains slightly tachycardic. Will continue sedation and ET intubation until ADDI resolves. Pt spiked temperature of 102 yesterday and is tachycardic, possibly 2/2 DT, however will r/o infectious source. urine cx pending. blood cx ordered today. Will cover with empiric abx. (2) Alcohol withdrawal syndrome Code(s): F10.239 - ALCOHOL DEPENDENCE WITH WITHDRAWAL, UNSPECIFIED Status: Acute QualifierTitle: Complication of substance-induced condition: with delirium Qualified Code(s): F10.231 - Alcohol dependence with withdrawal delirium Plan: Same as above. (3) Elevated transaminase level Code(s): R74.0 - NONSPEC ELEV OF LEVELS OF TRANSAMNS & LACTIC ACID DEHYDRGNSE Status: Acute Plan: improving Will continue to monitor. (4) Thrombocytopenia Code(s): D69.6 - THROMBOCYTOPENIA, UNSPECIFIED Status: Acute Plan: Likely 2/2 to alcohol abuse. Improving. (5) Acute pancreatitis Code(s): K85.90 - ACUTE PANCREATITIS WITHOUT NECROSIS OR INFECTION, UNSP Status: Resolved Plan: Pt was tolerating diet prior to intubation. Will consider trickle feeds as pt is currently NPO. (6) Hypokalemia Code(s): E87.6 - HYPOKALEMIA Status: Acute Plan: Electrolyte replacement protocol in place. Will check Mg today as well. <Danay Andujar - Last Filed: 11/03/17 10:51> Attending Addendum - Attending Addendum I personally evaluated the patient and discussed the management with Dr. Andujar. I agree with the History, Examination, Assessment and Plan documented above with any addition or exceptions noted below. Infectious dz workup arranged due to fever in last 24 hours. Advised increased versed for agitation. Increased to 10mg/hr. empiric antibx initiated. This is day 5 since last Etoh. Risk of seizure diminishing after today. <Geovanny Mcdonough - Last Filed: 11/03/17 13:45>
--- NOTE | 2017-11-03 07:57 | RAD ---
FRONTAL RADIOGRAPH OF CHEST: Date: 11/03/17 COMPARISON: 11/01/17. HISTORY: Ventilated CCU patient. FINDINGS: Endotracheal tube and nasogastric tube are in stable position. There is interstitial opacity in the p erihilar regions and medial lung bases with patchy areas of medial bibasilar air space disease. Aerat ion in both perihilar regions and both lung bases has worsened since the prior exam. IMPRESSION: Worsening nonspecific opacity in bilateral perihilar regions and both lung bases. Findings may be on the basis of volume loss, infectious pneumonitis, aspiration, or edema. POS: [facility]
[2017-11-03] MEDS: Piperacillin/Tazobactam 4.5 GM in Sodium Chloride 0.9% 100 ML IVPB SCH ×2 (12:19→18:19)
[2017-11-03] MEDS: Acetaminophen 650 MG Suppository PR PRN (12:29)
[2017-11-03 12:34] LABS: Lactic Acid - Sepsis 1.3 mmol/L (0.5-2.2)
[2017-11-03] MEDS: Multivitamins, Adult 10 ML, Folic Acid 1 MG, Thiamine HCl 100 MG in Dextrose 5 %-0.45 %... IV SCH ×4 (16:03)
[2017-11-03] MEDS: Nicotine 14 MG PATCH TD SCH (18:19)
--- NOTE | 2017-11-03 20:45 | PRG ---
DATE OF SERVICE: 11/03/2017 OBJECTIVE: VITAL SIGNS: Afebrile, blood pressure is 97/56, respiratory rate is per mechanical ventilation, oxim etry is 99. HEAD AND NECK: Unchanged. LUNGS: Clear. HEART: Regular rhythm, no S3. ABDOMEN: Soft, without guarding. EXTREMITIES: Without asymmetry. LABORATORY DATA: White count 9.2, hemoglobin 13.7, and platelets 128. Sodium 136, potassium 2.9, chloride 100, bicarbonate 26, BUN 5, creatinine 0.7, and glucose 107. Intake and output is positive 2209. IMPRESSION: 1. Respiratory failure secondary to alcohol withdrawal. 2. Acute pancreatitis. 3. Fever. Radiograph suggestive of some bilateral atelectasis, would empirically culture and then c overing with antibiotics, Zosyn should be adequate. His fever could be part of his pancreatitis. I suspect he has chronic pancreatitis. Imaging of his abdomen may need to be considered if he continues to be febrile. Critical care time: 30 minutes.
[2017-11-03] MEDS: Pantoprazole 40 MG VIAL IVP SCH (21:10)
[2017-11-04] MEDS: Piperacillin/Tazobactam 4.5 GM in Sodium Chloride 0.9% 100 ML IVPB SCH ×5 (01:03→23:18)
[2017-11-04 04:51] LABS: #Eosinphils 0.1 thou/uL (0.0-0.7); #Lymphocytes 0.7 thou/uL (1.20-3.40); #Monocytes 1.1 thou/uL (0.11-0.59); #Neutrophils 6.3 thou/uL (1.40-6.50); %Basophils 0.4 % (0.0-1.0); %Eosinophils 1.3 % (0.0-10.0); %Lymphocytes 8.3 % (21.0-51.0); %Monocytes 13.8 % (0.0-10.0); Hematocrit 36.8 % (42.0-52.0); Mean Platelet Volume 6.6 fL (7.4-10.4); Red Blood Cell (RBC) Count 3.67 mill/uL (4.70-6.10); White Blood Cell (WBC) Count 8.3 thou/uL (4.8-10.8)
[2017-11-04 05:01] LABS: ALT (SGPT) 41 U/L (8-55); AST (SGOT) 41 U/L (5-34); Alkaline Phosphatase 72 U/L (40-150); Anion Gap 9 mmol/L (10-20); BUN (Urea Nitrogen) 6 mg/dL (8.9-20.6); Bilirubin, Total 1.1 mg/dL (0.2-1.2); Calc. Creatinine Clearance 173 mL/min (70-130); Calcium 8.9 mg/dL (7.8-10.44); Carbon Dioxide 26 mmol/L (22-29); Chloride 107 mmol/L (98-107); Estimated GFR-MDRD Greater than 90; Globulin 3.2 g/dL (2.4-3.5); Protein, Total 6.2 g/dL (6.0-8.3)
[2017-11-04] MEDS: Propofol 1,000 MG/100 ML VIAL IV PRN ×4 (05:59→20:41)
[2017-11-04] MEDS: Sodium Chloride 0.9% 1,000 ML IV SCH ×3 (05:59→20:54)
--- NOTE | 2017-11-04 07:19 | PDOC.FM ---
- Subjective Subjective: Pt continues to have periods of agitation despite being sedated with propofol and versed, requiring additional boluses of propofol to keep him comfortable. No adverse events overnight. - Objective MAR Reviewed: Yes Vital Signs & Weight: Vital Signs (12 hours) Temp Pulse Resp BP Pulse Ox 11/04/17 07:04 76 125/80 11/04/17 06:00 18 11/04/17 04:00 99.2 F 10 L 106/70 11/04/17 02:59 75 135/91 H 11/04/17 02:00 12 11/04/17 00:00 98.2 F 13 102/67 11/03/17 22:15 75 100/64 11/03/17 22:00 10 L 11/03/17 20:00 98.0 F 70 12 99/66 100 Weight Admit Weight 70.307 kg Weight 70.307 kg Most Recent Monitor Data Heart Rate from ECG 76 NIBP 110/64 NIBP BP-Mean 81 Respiration from ECG 16 SpO2 99 I&O: 11/03/17 11/04/17 11/05/17 06:59 06:59 06:59 Intake Total 5394.3 5087.6 Output Total 3185 2940 Balance 2209.3 2147.6 Result Diagrams: 11/04/17 04:28 11/04/17 04:28 <Danay Andujar - Last Filed: 11/04/17 10:17> - Objective Vital Signs & Weight: Vital Signs (12 hours) Temp Pulse Resp BP Pulse Ox 11/04/17 16:00 99.0 F 20 138/79 11/04/17 14:35 83 157/78 H 11/04/17 14:00 16 11/04/17 12:00 98.8 F 26 H 11/04/17 11:02 61 133/85 11/04/17 10:00 12 11/04/17 08:00 98.9 F 61 19 100 11/04/17 07:04 76 125/80 11/04/17 06:00 18 Weight Admit Weight 70.307 kg Weight 70.307 kg Most Recent Monitor Data Heart Rate from ECG 73 NIBP 102/64 NIBP BP-Mean 75 Respiration from ECG 12 SpO2 98 I&O: 11/03/17 11/04/17 11/05/17 06:59 06:59 06:59 Intake Total 5394.3 5087.6 30 Output Total 3185 2940 975 Balance 2209.3 2147.6 -945 Result Diagrams: 11/04/17 04:28 11/04/17 04:28 <Geovanny Mcdonough Palak - Last Filed: 11/04/17 17:18> Phys Exam - Physical Examination Constitutional: NAD HEENT: PERRLA Respiratory: clear to auscultation bilateral Cardiovascular: RRR Gastrointestinal: soft, non-tender, no distention Musculoskeletal: no edema Psychiatric: A&O x 3 <Danay Andujar - Last Filed: 11/04/17 10:17> Dx/Plan (1) Delirium tremens Code(s): F10.231 - ALCOHOL DEPENDENCE WITH WITHDRAWAL DELIRIUM Status: Acute Plan: Pt remains agitated despite continuous sedation. Tachycardia has improved with increasing versed. Will continue sedation and ET intubation until ADDI resolves. (2) Alcohol withdrawal syndrome Code(s): F10.239 - ALCOHOL DEPENDENCE WITH WITHDRAWAL, UNSPECIFIED Status: Acute QualifierTitle: Complication of substance-induced condition: with delirium Qualified Code(s): F10.231 - Alcohol dependence with withdrawal delirium Plan: Same as above. (3) Hospital-acquired bacterial pneumonia Code(s): J15.9 - UNSPECIFIED BACTERIAL PNEUMONIA Status: Acute Plan: pt producing foul-smelling, purulent sputum. Zosyn (day 2) will obtain sputum culture today. (4) Acute pancreatitis Code(s): K85.90 - ACUTE PANCREATITIS WITHOUT NECROSIS OR INFECTION, UNSP Status: Resolved QualifierTitle: Pancreatitis type: alcohol induced Plan: Pt still NPO. Will repeat lipase today. Consider trickle feeds. (5) Hypokalemia Code(s): E87.6 - HYPOKALEMIA Status: Acute Plan: Potassium is 3.4 today. Electrolyte replacement protocol in place. (6) Bacteremia Code(s): R78.81 - BACTEREMIA Status: Suspected Plan: blood cx shows 1/2 cultures positive for coagulase negative staph. Likely a contaminate, will repeat blood cultures. - Plan Plan: DVT proph: Lovenox started today as platelet count has normalized. GI proph: Protonix <Danay Andujar - Last Filed: 11/04/17 10:17> Attending Addendum - Attending Addendum I personally evaluated the patient and discussed the management with Dr. Andujar. I agree with the History, Examination, Assessment and Plan documented above with any addition or exceptions noted below. Patient is improved with antibiotics and increased versed. Sputum culture requested. Possible sedation weaning soon. <Geovanny Mcdonough - Last Filed: 11/04/17 17:18>
--- NOTE | 2017-11-04 08:08 | RAD ---
PORTABLE CHEST: HISTORY: Respiratory distress. COMPARISON: Prior day's study. FINDINGS: Heart size appears slightly enlarged. Endotracheal and NG tubes are in satisfactory position. The p erihilar and lower lobe lung markings appear slightly improved as compared to the prior exam. IMPRESSION: Slight improvement to the parenchymal lung markings suggesting some resolving edema. POS: [facility]
[2017-11-04] MEDS: Enoxaparin Sodium 40 MG/0.4 ML SYRINGE SC SCH (10:32)
[2017-11-04] MEDS: Pantoprazole 40 MG VIAL IVP SCH ×2 (10:33→20:55)
[2017-11-04] MEDS: Haloperidol Lactate 5 MG/ML VIAL IM SCH ×3 (15:53→23:18)
[2017-11-04] MEDS ORDERED: Scopolamine 1.5 mg/72 hour Patch TD SCH (16:00)
[2017-11-04] MEDS: Multivitamins, Adult 10 ML, Folic Acid 1 MG, Thiamine HCl 100 MG in Dextrose 5 %-0.45 %... IV SCH ×4 (16:59)
[2017-11-04] MEDS: metroNIDAZOLE 500 MG in Premix Bag 1 BAG IVPB SCH (17:03)
--- NOTE | 2017-11-04 19:36 | PRG ---
DATE OF SERVICE: 11/04/2017 Mr. Franklin was given a sedation holiday this morning and became very tachycardic, hypertensive and agit ated. He is clearly not out of his alcohol withdrawal window. He is coughing when he is awake. PHYSICAL EXAMINATION VITAL SIGNS: His blood pressure now is 138/79, heart rates in the 80s, respiratory rates 20, oximetr y is 96. LUNGS: Remarkable for rhonchi bilaterally. HEART: Regular rhythm. ABDOMEN: Soft. He is developing an erythematous rash that looks like a drug eruption. LABORATORY DATA: His white count is 8.3, hemoglobin 12.1, platelets 179. Sodium 139, potassium 3.4, chloride 107, bic arbonate 26, BUN 6, creatinine 0.6. Lipase down to 118. IMPRESSION: Respiratory failure associated with alcohol withdrawal. PLAN: Continue deep sedation, he is requiring high doses of propofol and Versed. Haldol will be add ed. With regards to his macular rash, he may be having a PENICILLIN reaction, his PENICILLIN will be disc ontinued. He will be placed on Levaquin and Flagyl.
[2017-11-04] MEDS: Nicotine 14 MG PATCH TD SCH (19:45)
[2017-11-05] MEDS: Propofol 1,000 MG/100 ML VIAL IV PRN ×3 (00:44→17:55)
[2017-11-05] MEDS: metroNIDAZOLE 500 MG in Premix Bag 1 BAG IVPB SCH ×3 (02:05→16:59)
[2017-11-05] MEDS: Haloperidol Lactate 5 MG/ML VIAL IM SCH ×6 (03:30→23:18)
[2017-11-05] MEDS: Sodium Chloride 0.9% 1,000 ML IV SCH ×2 (04:03→12:17)
[2017-11-05 04:39] LABS: #Lymphocytes 0.6 thou/uL (1.20-3.40); #Monocytes 0.8 thou/uL (0.11-0.59); #Neutrophils 5.6 thou/uL (1.40-6.50); %Eosinophils 0.1 % (0.0-10.0); %Lymphocytes 8.1 % (21.0-51.0); Mean Platelet Volume 6.8 fL (7.4-10.4); Red Blood Cell (RBC) Count 3.79 mill/uL (4.70-6.10); White Blood Cell (WBC) Count 6.9 thou/uL (4.8-10.8)
[2017-11-05 05:11] LABS: ALT (SGPT) 37 U/L (8-55); AST (SGOT) 58 U/L (5-34); Alkaline Phosphatase 116 U/L (40-150); Anion Gap 10 mmol/L (10-20); BUN (Urea Nitrogen) 4 mg/dL (8.9-20.6); Bilirubin, Total 0.9 mg/dL (0.2-1.2); Calc. Creatinine Clearance 162 mL/min (70-130); Calcium 9.3 mg/dL (7.8-10.44); Carbon Dioxide 26 mmol/L (22-29); Chloride 106 mmol/L (98-107); Estimated GFR-MDRD Greater than 90; Globulin 3.6 g/dL (2.4-3.5); Protein, Total 6.8 g/dL (6.0-8.3)
[2017-11-05] MEDS: Potassium Chloride 40 MEQ in Sodium Chloride 0.9% 250 ML 250 ML IVPB PRN (05:42)
[2017-11-05] MEDS: Piperacillin/Tazobactam 4.5 GM in Sodium Chloride 0.9% 100 ML IVPB SCH (05:42)
[2017-11-05] MEDS: Enoxaparin Sodium 40 MG/0.4 ML SYRINGE SC SCH (08:46)
[2017-11-05] MEDS: Pantoprazole 40 MG VIAL IVP SCH ×2 (08:46→21:07)
--- NOTE | 2017-11-05 09:49 | RAD ---
PORTABLE SEMI UPRIGHT FRONTAL CHEST RADIOGRAPH: Date: 11-05-17 Comparison: 11-04-17 History: Ventilated patient, respiratory distress. FINDINGS: Endotracheal tube and nasogastric tube in stable proper position. There is interstitial and alveolar opacity in bilateral perihilar regions in the medial aspect of bot h lung bases, not significantly changed. IMPRESSION: Stable appearance of the chest as detailed above. POS: [facility]
--- NOTE | 2017-11-05 10:47 | PDOC.FM ---
- Subjective Subjective: Pt is sedated and mechanically ventilated. He continues to require deep sedation and becomes agitated and combative during sedation vacations. - Objective MAR Reviewed: Yes Vital Signs & Weight: Vital Signs (12 hours) Temp Pulse Resp BP Pulse Ox 11/05/17 10:43 81 103/56 L 11/05/17 10:00 13 11/05/17 08:00 98.7 F 64 11 L 100 11/05/17 06:46 70 98/53 L 11/05/17 06:00 24 H 11/05/17 04:00 98.0 F 16 11/05/17 02:56 104 H 115/71 11/05/17 02:00 18 11/05/17 00:00 100.0 F H 22 H 92/53 L Weight Admit Weight 70.307 kg Weight 70.307 kg Most Recent Monitor Data Heart Rate from ECG 66 NIBP 103/56 NIBP BP-Mean 85 Respiration from ECG 5 SpO2 100 I&O: 11/04/17 11/05/17 11/06/17 06:59 06:59 06:59 Intake Total 5087.6 3698 Output Total 2940 3830 510 Balance 2147.6 -132 -510 Result Diagrams: 11/05/17 03:40 11/05/17 03:40 <Danay Andujar - Last Filed: 11/05/17 10:52> - Objective Vital Signs & Weight: Vital Signs (12 hours) Temp Pulse Resp BP Pulse Ox 11/05/17 12:00 98.1 F 11 L 11/05/17 10:43 81 103/56 L 11/05/17 10:00 13 11/05/17 08:00 98.7 F 64 11 L 100 11/05/17 06:46 70 98/53 L 11/05/17 06:00 24 H 11/05/17 04:00 98.0 F 16 11/05/17 02:56 104 H 115/71 11/05/17 02:00 18 Weight Admit Weight 70.307 kg Weight 70.307 kg Most Recent Monitor Data Heart Rate from ECG 75 NIBP 98/52 NIBP BP-Mean 62 Respiration from ECG 22 SpO2 100 I&O: 11/04/17 11/05/17 11/06/17 06:59 06:59 06:59 Intake Total 5087.6 3698 Output Total 2940 3830 665 Balance 2147.6 -132 -665 Result Diagrams: 11/05/17 03:40 11/05/17 03:40 <Geovanny Mcdonough - Last Filed: 11/05/17 13:09> Phys Exam - Physical Examination Constitutional: NAD Respiratory: clear to auscultation bilateral Cardiovascular: RRR Gastrointestinal: soft, non-tender Musculoskeletal: no edema Skin: no rash <Danay Andujar - Last Filed: 11/05/17 10:52> Dx/Plan (1) Delirium tremens Code(s): F10.231 - ALCOHOL DEPENDENCE WITH WITHDRAWAL DELIRIUM Status: Acute Plan: Pt remains agitated despite continuous sedation. Scheduled Haldol added. Will continue sedation and ET intubation until ADDI resolves. (2) Alcohol withdrawal syndrome Code(s): F10.239 - ALCOHOL DEPENDENCE WITH WITHDRAWAL, UNSPECIFIED Status: Acute QualifierTitle: Complication of substance-induced condition: with delirium Qualified Code(s): F10.231 - Alcohol dependence with withdrawal delirium Plan: Same as above. (3) Hospital-acquired bacterial pneumonia Code(s): J15.9 - UNSPECIFIED BACTERIAL PNEUMONIA Status: Acute Plan: pt producing foul-smelling, purulent sputum. Zosyn discontinue due to development of rash which has actually resolved. Levofloxacin and Flagyl added. Sputum gram stain shows gram negative rods. AM CXR shows stable appearance of bilateral hilar and bibasilar infiltrates. (4) Hypokalemia Code(s): E87.6 - HYPOKALEMIA Status: Acute Plan: Potassium is 3.4 today. Electrolyte replacement protocol in place. (5) Bacteremia Code(s): R78.81 - BACTEREMIA Status: Suspected Plan: Repeat blood cultures show no growth to date. - Plan Plan: DVT prophylaxis: Lovenox GI prophylaxis: Protonix Diet: tube feeds. <Danay Andujar - Last Filed: 11/05/17 10:52> Attending Addendum - Attending Addendum I personally evaluated the patient and discussed the management with Dr. Andujar. I agree with the History, Examination, Assessment and Plan documented above with any addition or exceptions noted below. Pneumonia with gram neg kitty is noted. On Zosyn. Culture pending. Sedation weaning trial. <Geovanny Mcdonough - Last Filed: 11/05/17 13:09>
[2017-11-05] MEDS: Multivitamins, Adult 10 ML, Folic Acid 1 MG, Thiamine HCl 100 MG in Dextrose 5 %-0.45 %... IV SCH ×4 (15:48)
[2017-11-05] MEDS: Nicotine 14 MG PATCH TD SCH (17:17)
--- NOTE | 2017-11-05 17:56 | PRG ---
DATE OF SERVICE: 11/05/2017 SUBJECTIVE: Mr. Franklin remains sedated for mechanical ventilation. He is on significant doses of dontrell tive drugs and when they are decreased even slightly, he becomes very agitated. OBJECTIVE: VITAL SIGNS: He is currently not tachycardic with a heart rate of 92, blood pressure 109/64, respira tory rate is per mechanical ventilation. Intake and output is positive 2147. LUNGS: Clear. CARDIOVASCULAR: Regular rhythm. ABDOMEN: Soft. Chest radiograph is unchanged. IMPRESSION: 1. Fever, most likely secondary to aspiration when he was withdrawn from alcohol. He is afebrile no w and clinically stable on Levaquin and Flagyl. 2. Erythematous rash? PENICILLIN reaction. 3. Extremely heavy alcohol use chronically. 4. Pancreatitis is likely acute on chronic. 5. Alcohol withdrawal this admission. 6. Anemia associated with his current illness on top of anemia of chronic disease. 7. Mildly elevated AST secondary to alcoholism. 8. Hypoalbuminemia secondary to alcoholism. PLAN: Continue support. We will try sedation holidays over the weekend again. He is receiving IM Haldol every 4 hours and this appears to have helped as much as anything.
[2017-11-05] MEDS: Diazepam 10 MG/2 ML SYRINGE IVP PRN (20:01)
[2017-11-05] MEDS: Promethazine HCl 25 MG/ML VIAL IM PRN (21:32)
[2017-11-05] MEDS: Lorazepam 2 MG/ML VIAL SLOW IVP PRN (21:33)
[2017-11-05] MEDS: Acetaminophen 650 MG Suppository PR PRN (23:19)
[2017-11-06] MEDS: Propofol 1,000 MG/100 ML VIAL IV PRN ×3 (00:52→11:03)
[2017-11-06] MEDS: metroNIDAZOLE 500 MG in Premix Bag 1 BAG IVPB SCH ×3 (01:00→17:05)
[2017-11-06] MEDS: Haloperidol Lactate 5 MG/ML VIAL IM SCH ×2 (03:55→07:55)
[2017-11-06 05:00] LABS: #Lymphocytes 0.8 thou/uL (1.20-3.40); #Monocytes 1.2 thou/uL (0.11-0.59); #Neutrophils 10.4 thou/uL (1.40-6.50); %Basophils 0.1 % (0.0-1.0); %Lymphocytes 6.5 % (21.0-51.0); %Monocytes 9.4 % (0.0-10.0); Hematocrit 37.6 % (42.0-52.0); Mean Platelet Volume 6.7 fL (7.4-10.4); Red Blood Cell (RBC) Count 3.73 mill/uL (4.70-6.10); White Blood Cell (WBC) Count 12.4 thou/uL (4.8-10.8)
[2017-11-06 05:27] LABS: ALT (SGPT) 40 U/L (8-55); AST (SGOT) 62 U/L (5-34); Alkaline Phosphatase 112 U/L (40-150); Anion Gap 9 mmol/L (10-20); BUN (Urea Nitrogen) 12 mg/dL (8.9-20.6); Bilirubin, Total 0.8 mg/dL (0.2-1.2); Calc. Creatinine Clearance 144 mL/min (70-130); Calcium 9.3 mg/dL (7.8-10.44); Carbon Dioxide 30 mmol/L (22-29); Chloride 111 mmol/L (98-107); Estimated GFR-MDRD Greater than 90; Globulin 3.6 g/dL (2.4-3.5); Protein, Total 6.9 g/dL (6.0-8.3)
[2017-11-06] MEDS ORDERED: Sodium Chloride 0.9% 1,000 ML IV SCH (08:00)
[2017-11-06 08:55] LABS: Mechanical Tidal Volume 500 ml; Modified Allen's Test POSITIVE; Oxyhemoglobin 95.4 % (94.0-97.0); Pressure Support 10 cmH2O; Sodium 145 mmol/L (135-148); Vent YES
[2017-11-06 08:56] LABS: Mode SIMV/PSV
--- NOTE | 2017-11-06 09:22 | RAD ---
AP VIEW CHEST: HISTORY: Ventilator-dependent patient. FINDINGS: AP view of the chest was obtained on 11/06/17. Comparison is made to a previous exam from 11/05/17. AP view chest demonstrates nasogastric and endotracheal tubes to be in good position. Pulmonary vasc ular congestion is seen. There is interval development of loss of the left lung hemidiaphragm interf sonja compatible with a small left-sided pleural effusion with or without come component of left lower lobe atelectasis or pneumonia. This has developed since the previous comparison exam from 1 day arielle ier. Some pulmonary vascular congestion is also seen in the perihilar regions. IMPRESSION: Loss of the left lung hemidiaphragm interface compatible with a left-sided pleural effusion and areas of left lower lobe atelectasis or pneumonia. POS: [facility]
[2017-11-06] MEDS: Multivitamin W/ Minerals 1 TAB PER TUBE SCH (09:41)
[2017-11-06] MEDS: Enoxaparin Sodium 40 MG/0.4 ML SYRINGE SC SCH (09:41)
[2017-11-06] MEDS: Pantoprazole 40 MG GRANULES PACKET PER TUBE SCH ×2 (09:41→20:06)
[2017-11-06] MEDS: Folic Acid 1 MG TAB PER TUBE SCH (09:41)
--- NOTE | 2017-11-06 10:21 | PDOC.FM ---
- Subjective Subjective: Pt continues to require sedation to keep vitals stable. He became tachycardic to 130s and spiked a temperature of 102 while sedation was being weaned. Sedation was increased. - Objective MAR Reviewed: Yes Vital Signs & Weight: Vital Signs (12 hours) Temp Pulse Resp BP Pulse Ox 11/06/17 08:00 99.5 F 71 16 98 11/06/17 07:17 90 99/61 11/06/17 06:00 20 11/06/17 04:00 99.5 F 19 11/06/17 02:03 87 99/47 L 11/06/17 02:00 99.8 F H 17 11/06/17 00:00 102.2 F H 24 H 11/05/17 22:42 104 H 129/74 Weight Admit Weight 70.307 kg Weight 70.307 kg Most Recent Monitor Data Heart Rate from ECG 87 NIBP 112/64 NIBP BP-Mean 68 Respiration from ECG 19 SpO2 95 I&O: 11/05/17 11/06/17 11/07/17 06:59 06:59 06:59 Intake Total 3698 2195.7 394.1 Output Total 3830 1870 115 Balance -132 325.7 279.1 Result Diagrams: 11/06/17 04:35 11/06/17 04:35 <Danay Andujar - Last Filed: 11/06/17 10:49> - Objective Vital Signs & Weight: Vital Signs (12 hours) Temp Pulse Resp BP Pulse Ox 11/06/17 10:43 85 101/72 11/06/17 10:00 15 11/06/17 08:00 99.5 F 71 16 98 11/06/17 07:17 90 99/61 11/06/17 06:00 20 11/06/17 04:00 99.5 F 19 11/06/17 02:03 87 99/47 L 11/06/17 02:00 99.8 F H 17 11/06/17 00:00 102.2 F H 24 H Weight Admit Weight 70.307 kg Weight 70.307 kg Most Recent Monitor Data Heart Rate from ECG 90 NIBP 101/72 NIBP BP-Mean 82 Respiration from ECG 26 SpO2 96 I&O: 11/05/17 11/06/17 11/07/17 06:59 06:59 06:59 Intake Total 3698 2195.7 394.1 Output Total 3830 1870 235 Balance -132 325.7 159.1 Result Diagrams: 11/06/17 04:35 11/06/17 04:35 <Geovanny Mcdonough - Last Filed: 11/06/17 11:02> Phys Exam - Physical Examination Constitutional: NAD HEENT: PERRLA Respiratory: clear to auscultation bilateral Cardiovascular: RRR, no significant murmur Gastrointestinal: soft, non-tender Musculoskeletal: no edema, pulses present Neurological: non-focal <Danay Andujar - Last Filed: 11/06/17 10:49> Dx/Plan (1) Delirium tremens Code(s): F10.231 - ALCOHOL DEPENDENCE WITH WITHDRAWAL DELIRIUM Status: Acute Plan: Pt remains agitated despite continuous sedation. Scheduled Haldol added. Will discontinue versed and add Precedex today, per Pulm recommendations. We will attempt to wean from Vent today as well. (2) Alcohol withdrawal syndrome Code(s): F10.239 - ALCOHOL DEPENDENCE WITH WITHDRAWAL, UNSPECIFIED Status: Acute QualifierTitle: Complication of substance-induced condition: with delirium Qualified Code(s): F10.231 - Alcohol dependence with withdrawal delirium Plan: Same as above. (3) Hospital-acquired bacterial pneumonia Code(s): J15.9 - UNSPECIFIED BACTERIAL PNEUMONIA Status: Acute Plan: pt producing foul-smelling, purulent sputum. Continue Levofloxacin and Flagyl. Sputum gram stain shows gram negative rods, awaiting culture. (4) Hypernatremia Code(s): E87.0 - HYPEROSMOLALITY AND HYPERNATREMIA Status: Acute Plan: Free water flushes 165 ml Q4H repeat BMP @ 1500 (5) Pleural effusion Code(s): J90 - PLEURAL EFFUSION, NOT ELSEWHERE CLASSIFIED Status: Acute Plan: CXR shows left sided pleural effusion and vascular congestion. Pt has been having adequate urine output (>1870 in 24 hrs). Will give one dose of Lasix 40 mg. - Plan Plan: DVT prophylaxis: Lovenox GI prophylaxis: Protonix Diet: continuous tube feeds. <Danay Andujar - Last Filed: 11/06/17 10:49> Attending Addendum - Attending Addendum I personally evaluated the patient and discussed the management with Dr. Andujar. I agree with the History, Examination, Assessment and Plan documented above with any addition or exceptions noted below. Patient is comfortable with sedation. Appreciate Crit Care Attending care particularly with sedation. Pt did not tolerate sedation wean yesterday. Continue antibiotics for aspiration pnuemonia. Cultures pending. DVT prophylaxis, GI prophylaxis ongoing. <Geovanny Mcdonough - Last Filed: 11/06/17 11:02>
[2017-11-06] MEDS ORDERED: Furosemide 20 MG/2 ML VIAL SLOW IVP SCH (10:45)
[2017-11-06] MEDS ORDERED: Dextrose 5% in Water 1,000 ML IV SCH (10:45)
[2017-11-06] MEDS: Dextrose 5% in Water 500 ML IV SCH ×2 (10:56→16:52)
[2017-11-06] MEDS ORDERED: Furosemide 40 MG/4 ML VIAL SLOW IVP SCH (11:00)
--- NOTE | 2017-11-06 11:48 | PRG ---
DATE OF SERVICE: 11/06/2017 SERVICE: Pulmonary Medicine. INTERVAL HISTORY: The patient is doing okay from a respiratory standpoint. He is on minimal setting s on the ventilator. He is breathing comfortably. That being said, anytime sedation is interrupted, he wakes up extraordinarily while. He does have a history of heavy drinking. Otherwise, there has been no interval change in his condition. PHYSICAL EXAMINATION: VITAL SIGNS: Afebrile, currently with T-max overnight of 102.2. Pulse 71, blood pressure 112/64, re spirations 19, and saturation 95% on room air. GENERAL: The patient is awake, alert, in no apparent distress. LUNGS: Decent air entry. There is no prolonged expiratory phase or wheezing present. HEART: Normal rate, regular. ABDOMEN: Soft, nontender, nondistended. Bowel sounds are positive. MUSCULOSKELETAL: No cyanosis or clubbing. Diffuse pitting is present at 1+. : Cano catheter in place. NEUROLOGIC: Grossly nonfocal. LABORATORY DATA: WBC 12.4, hemoglobin 12.4, platelets 408,000. Neutrophil count is up trending to 8 4%. INR 1.0. PH 7.45, pCO2 of 33, pO2 of 83. Sodium 146. Chloride 111, bicarbonate 30. Basic met abolic profile is otherwise unremarkable. AST is gently trending upward 62. Otherwise, liver functi on studies are unremarkable. Urinalysis is negative. Urine drug screen positive for opiates and marco antonio zodiazepine. Hepatitis B, C, syphilis, and HIV are unremarkable. Blood cultures x2, respiratory cul ture, and urine culture are negative to date. Repeat cultures were just obtained last night during f ever. IMAGING: Chest x-ray demonstrates left-sided pleural effusion and left lower lobe atelectasis versus pneumonia is possible. Endotracheal tube is in okay position. There is an enteric catheter coursin g well below the level of the diaphragm. ASSESSMENT: 1. Metabolic encephalopathy. 2. Acute hypoxic respiratory failure. 3. Acute pancreatitis. 4. Delirium tremens. 5. Severe sepsis. PLAN: We will put him on dexmedetomidine. I will give him some free water. We are going to stably wean off Versed and propofol and if he wakes up smoothly, spontaneous breathing trial and possible ex tubation could be considered. For the time being, we will leave him in the intubated state. The sep sis is being worked up. He is on some antibiotics for that. Hopefully, over the next 24-48 hours, h is mentation will improve to the point of being able to tolerate extubation.
[2017-11-06 15:39] LABS: Anion Gap 12 mmol/L (10-20); BUN (Urea Nitrogen) 14 mg/dL (8.9-20.6); Calc. Creatinine Clearance 155 mL/min (70-130); Calcium 9.6 mg/dL (7.8-10.44); Carbon Dioxide 27 mmol/L (22-29); Chloride 108 mmol/L (98-107); Estimated GFR-MDRD Greater than 90
[2017-11-07] MEDS: metroNIDAZOLE 500 MG in Premix Bag 1 BAG IVPB SCH ×3 (02:00→17:03)
[2017-11-07 05:06] LABS: #Eosinphils 0.1 thou/uL (0.0-0.7); #Lymphocytes 1.3 thou/uL (1.20-3.40); #Monocytes 1.3 thou/uL (0.11-0.59); #Neutrophils 6.2 thou/uL (1.40-6.50); %Basophils 0.3 % (0.0-1.0); %Eosinophils 0.7 % (0.0-10.0); %Lymphocytes 14.6 % (21.0-51.0); %Monocytes 14.6 % (0.0-10.0); Hematocrit 39.5 % (42.0-52.0); Red Blood Cell (RBC) Count 3.92 mill/uL (4.70-6.10); White Blood Cell (WBC) Count 8.9 thou/uL (4.8-10.8)
[2017-11-07] MEDS: Dextrose 5% in Water 500 ML IV SCH (05:21)
[2017-11-07 05:46] LABS: ALT (SGPT) 57 U/L (8-55); AST (SGOT) 79 U/L (5-34); Alkaline Phosphatase 105 U/L (40-150); Anion Gap 11 mmol/L (10-20); BUN (Urea Nitrogen) 17 mg/dL (8.9-20.6); Bilirubin, Total 0.7 mg/dL (0.2-1.2); Calc. Creatinine Clearance 160 mL/min (70-130); Calcium 9.5 mg/dL (7.8-10.44); Carbon Dioxide 28 mmol/L (22-29); Chloride 105 mmol/L (98-107); Estimated GFR-MDRD Greater than 90; Magnesium 1.7 mg/dL (1.6-2.6); Phosphorus 3.7 mg/dL (2.3-4.7); Protein, Total 7.4 g/dL (6.0-8.3)
--- NOTE | 2017-11-07 07:35 | PDOC.FM ---
- Subjective Subjective: Slight increase in presedex rate overnight 2/2 mild increase in agitation 2/2 floor cleaning. Afebrile. No acute complaints this AM. Following commands and answering questions by nodding head. Afebrile. - Objective MAR Reviewed: Yes Vital Signs & Weight: Vital Signs (12 hours) Temp Pulse Resp BP Pulse Ox 11/07/17 06:22 66 112/70 11/07/17 06:00 14 11/07/17 04:00 99.3 F 14 11/07/17 03:05 75 11/07/17 02:00 18 11/07/17 00:00 18 11/06/17 22:23 79 11/06/17 22:00 25 H 11/06/17 20:00 97.5 F L 68 18 97 Weight Admit Weight 70.307 kg Weight 70.307 kg Most Recent Monitor Data Heart Rate from ECG 68 NIBP 128/79 NIBP BP-Mean 98 Respiration from ECG 17 SpO2 94 I&O: 11/06/17 11/07/17 11/08/17 06:59 06:59 06:59 Intake Total 2135.7 4156.1 Output Total 1870 2585 40 Balance 265.7 1571.1 -40 Result Diagrams: 11/07/17 04:45 11/07/17 04:45 <Simeon Stack - Last Filed: 11/07/17 07:33> - Objective Vital Signs & Weight: Vital Signs (12 hours) Temp Pulse Resp BP Pulse Ox 11/07/17 10:56 98.8 F 11/07/17 10:34 94 L 11/07/17 08:00 99.2 F 94 L 11/07/17 07:25 99.2 F 80 28 H 92 L 11/07/17 06:22 66 112/70 11/07/17 06:00 14 11/07/17 04:00 99.3 F 14 11/07/17 03:05 75 11/07/17 02:00 18 11/07/17 00:00 18 Weight Admit Weight 155 lb Weight 155 lb Most Recent Monitor Data Heart Rate from ECG 83 NIBP 114/80 NIBP BP-Mean 89 Respiration from ECG 21 SpO2 96 I&O: 11/06/17 11/07/17 11/08/17 06:59 06:59 06:59 Intake Total 2135.7 4156.1 225 Output Total 1870 2585 195 Balance 265.7 1571.1 30 Result Diagrams: 11/07/17 04:45 11/07/17 04:45 <Trevor Montalvo - Last Filed: 11/07/17 11:03> Phys Exam - Physical Examination Constitutional: NAD intubated on SPONT breathing trial. following commands Respiratory: clear to auscultation bilateral Cardiovascular: RRR, no significant murmur Gastrointestinal: soft, non-tender Musculoskeletal: no edema Neurological: moves all 4 limbs Deviation from normal: intubated <Simeon Stack - Last Filed: 11/07/17 07:33> Dx/Plan (1) Delirium tremens Code(s): F10.231 - ALCOHOL DEPENDENCE WITH WITHDRAWAL DELIRIUM Status: Acute Plan: Improved agitation s/p transition to precedex yesterday Following commands and doing well on spont breathing trial this AM Possible extubation later today per pulm/crit care Cont. w/ vitamin supplementation Will plan to monitor in the ICU s/p extubation w/ transition to floor per pulm (2) Hospital-acquired bacterial pneumonia Code(s): J15.9 - UNSPECIFIED BACTERIAL PNEUMONIA Status: Acute Plan: Tracheal aspirate growing H. influenza Pt at increased susceptibility to this 2/2 his alcoholism Awaiting sensitivities Cont. w/ levaquin BCx growing coag neg staph likely contaminant (3) Hypernatremia Code(s): E87.0 - HYPEROSMOLALITY AND HYPERNATREMIA Status: Acute Plan: Resolved s/p addition of free water flushes Will continue to monitor once transitioned to PO (4) Pleural effusion Code(s): J90 - PLEURAL EFFUSION, NOT ELSEWHERE CLASSIFIED Status: Acute Plan: Doing well on spont breathing trial this AM Likely 2/2 pneumonia Will cont. to monitor and eval interval changes s/p lasix yesterday w/ repeat CXR later today <Simeon Stack - Last Filed: 11/07/17 07:33> Attending Addendum - Attending Addendum I personally evaluated the patient and discussed the management with Dr. Stack I agree with the History, Examination, Assessment and Plan documented above. <Trevor Montalvo - Last Filed: 11/07/17 11:03>
--- NOTE | 2017-11-07 08:22 | PRG ---
DATE OF SERVICE: 11/07/2017 SERVICE: Pulmonary Medicine. INTERVAL HISTORY: The patient is doing great from a respiratory standpoint. He currently denies any shortness of breath. He is breathing comfortably on mechanical ventilation. Otherwise, there has b een no interval change to his condition. Overnight, his mentation is much improved with Precedex. PHYSICAL EXAMINATION: VITAL SIGNS: Afebrile, pulse 80, blood pressure 128/79, respirations 28, saturation 92% on 21% FiO2 and PEEP of 5. HEENT: Normocephalic, atraumatic. Sclerae are white. Conjunctivae pink. Oral and nasal mucosa is moist without lesions. LUNGS: Decent air entry. There is no prolonged expiratory phase or wheezing. HEART: Normal rate and regular. ABDOMEN: Soft, nontender, and nondistended. Bowel sounds positive. MUSCULOSKELETAL: No cyanosis or clubbing. No pitting in the bilateral lower extremities. NEUROLOGIC: Grossly nonfocal. LABORATORY DATA: WBC 8.9, hemoglobin 13.1, platelets 457,000. INR 1.0. Potassium 3.4, but otherwis e basic metabolic profile is unremarkable including magnesium and phosphorus. Liver function studies including AST and ALT are gently trending upward. Lipase 118. Tox screen is positive for opiates a nd benzodiazepines. All other serologies are unremarkable. Tracheal aspirate is growing Haemophilus influenza. One out of two blood cultures is growing coag negative staph. Repeat blood cultures are negative to date. IMAGING: Chest x-ray from yesterday demonstrates left lower lobe pleural or parenchymal opacificatio n which may very well represent the haemophilus that we saw on the tracheal aspirate. ASSESSMENT: 1. Metabolic encephalopathy, improving. 2. Delirium tremens. 3. Acute hypoxic respiratory failure. 4. Community-acquired pneumonia secondary to Haemophilus influenza. 5. Acute pancreatitis, resolved. 6. Severe sepsis. PLAN: I will hold everything except for the dexmedetomidine. This will be weaned away. He meets cr iteria for extubation and so this will be performed on dexmedetomidine. This will subsequently be sl owly tapered away over the next 24-48 hours. He will certainly need to remain in the ICU. Once his mentation allows, we will be getting up into a chair, feeding him and starting on some mobilization e fforts. His potassium and magnesium will be replaced today.
[2017-11-07] MEDS: Folic Acid 1 MG TAB PER TUBE SCH (08:50)
[2017-11-07] MEDS: Multivitamin W/ Minerals 1 TAB PER TUBE SCH (08:51)
[2017-11-07] MEDS: Enoxaparin Sodium 40 MG/0.4 ML SYRINGE SC SCH (08:59)
[2017-11-07] MEDS: Sodium Chloride 0.45% 1,000 ML IV SCH (08:59)
[2017-11-07] MEDS ORDERED: Magnesium 2 GM/NS 0.9% 50 ML 2 GM in Premix Bag 1 BAG IVPB SCH (09:00)
[2017-11-07] MEDS ORDERED: Potassium Chloride 40 MEQ in Sodium Chloride 0.9% 500 ML IVPB SCH (09:00)
[2017-11-07] MEDS ORDERED: Magnesium Sulfate 2 GM in Sodium Chloride 0.9% 100 ML IVPB SCH (09:00)
[2017-11-07] MEDS ORDERED: Lorazepam 2 MG/ML VIAL ONE (12:40)
[2017-11-07] MEDS ORDERED: Lorazepam 2 MG/ML VIAL SLOW IVP PRN (12:40)
[2017-11-07] MEDS: Lorazepam 2 MG/ML VIAL SLOW IVP PRN (12:47)
[2017-11-08 05:54] LABS: #Basophils 0.1 thou/uL (0.0-0.2); #Eosinphils 0.1 thou/uL (0.0-0.7); #Lymphocytes 1.6 thou/uL (1.20-3.40); #Monocytes 1.1 thou/uL (0.11-0.59); #Neutrophils 5.5 thou/uL (1.40-6.50); %Basophils 1.1 % (0.0-1.0); %Eosinophils 1.4 % (0.0-10.0); %Lymphocytes 19.3 % (21.0-51.0); %Monocytes 12.9 % (0.0-10.0); Hematocrit 39.6 % (42.0-52.0); Mean Platelet Volume 6.9 fL (7.4-10.4); White Blood Cell (WBC) Count 8.5 thou/uL (4.8-10.8)
[2017-11-08] MEDS: metroNIDAZOLE 500 MG in Premix Bag 1 BAG IVPB SCH ×3 (06:33→18:39)
[2017-11-08 07:45] LABS: ALT (SGPT) 101 U/L (8-55); AST (SGOT) 135 U/L (5-34); Alkaline Phosphatase 91 U/L (40-150); Anion Gap 13 mmol/L (10-20); BUN (Urea Nitrogen) 12 mg/dL (8.9-20.6); Bilirubin, Total 0.8 mg/dL (0.2-1.2); Calc. Creatinine Clearance 179 mL/min (70-130); Calcium 9.4 mg/dL (7.8-10.44); Carbon Dioxide 26 mmol/L (22-29); Chloride 104 mmol/L (98-107); Estimated GFR-MDRD Greater than 90; Globulin 3.9 g/dL (2.4-3.5); Protein, Total 7.2 g/dL (6.0-8.3)
--- NOTE | 2017-11-08 07:50 | PDOC.FM ---
- Subjective Subjective: PRIYANKA overnight, extubated yesterday. No complaints this AM. VSS, afebrile. - Objective MAR Reviewed: Yes Vital Signs & Weight: Vital Signs (12 hours) Temp Pulse Resp Pulse Ox 11/08/17 07:43 98.5 F 11/08/17 07:31 98.5 F 48 L 15 99 11/08/17 07:00 98.5 F 11/08/17 06:38 100 11/08/17 04:00 98.9 F 11/07/17 20:00 98.7 F 11/07/17 19:54 98.7 F 56 L 21 H 100 Weight Admit Weight 70.307 kg Weight 70.307 kg Most Recent Monitor Data Heart Rate from ECG 45 NIBP 134/72 NIBP BP-Mean 94 Respiration from ECG 21 SpO2 100 I&O: 11/07/17 11/08/17 11/09/17 06:59 06:59 06:59 Intake Total 4156.1 1704.3 Output Total 2585 1150 0 Balance 1571.1 554.3 0 Result Diagrams: 11/08/17 05:30 11/08/17 07:19 <Simeon Stack K - Last Filed: 11/08/17 07:47> - Objective Vital Signs & Weight: Vital Signs (12 hours) Temp Pulse Resp Pulse Ox 11/08/17 07:43 98.5 F 11/08/17 07:31 98.5 F 48 L 15 99 11/08/17 07:00 98.5 F 11/08/17 06:38 100 11/08/17 04:00 98.9 F Weight Admit Weight 155 lb Weight 155 lb Most Recent Monitor Data Heart Rate from ECG 58 NIBP 115/66 NIBP BP-Mean 82 Respiration from ECG 21 SpO2 100 I&O: 11/07/17 11/08/17 11/09/17 06:59 06:59 06:59 Intake Total 4156.1 1704.3 231.8 Output Total 2585 1150 800 Balance 1571.1 554.3 -568.2 Result Diagrams: 11/08/17 05:30 11/08/17 07:19 <Trevor Montalvo - Last Filed: 11/08/17 10:12> Phys Exam - Physical Examination Constitutional: NAD HEENT: PERRLA, moist MMs Neck: no nodes course breathsounds throughout Cardiovascular: RRR, no significant murmur Gastrointestinal: soft, non-tender Musculoskeletal: no edema, pulses present Neurological: non-focal, moves all 4 limbs Psychiatric: normal affect Skin: no rash <Simeon Stack - Last Filed: 11/08/17 07:47> Dx/Plan (1) Delirium tremens Code(s): F10.231 - ALCOHOL DEPENDENCE WITH WITHDRAWAL DELIRIUM Status: Acute Plan: Significantly improved tremulousness this AM on 0.4 precedex S/p extubation maintaining O2 sats on 3L NC No tachycardia Cont. to wean precedex as tolerated Eventual transition to floor once weaned off precedex and clearance per crit care Cont. w/ vitamin supplementation (2) Hospital-acquired bacterial pneumonia Code(s): J15.9 - UNSPECIFIED BACTERIAL PNEUMONIA Status: Acute Plan: Tracheal aspirate growing H. influenza Afebrile and resolved WBC Cont. w/ levaquin BCx growing coag neg staph likely contaminant <Simeon Stack - Last Filed: 11/08/17 07:47> Attending Addendum - Attending Addendum I personally evaluated the patient and discussed the management with Dr. Stack I agree with the History, Examination, Assessment and Plan documented above. <Trevor Montalvo - Last Filed: 11/08/17 10:12>
[2017-11-08] MEDS: Folic Acid 1 MG TAB PER TUBE SCH (08:22)
[2017-11-08] MEDS: Sodium Chloride 0.45% 1,000 ML IV SCH (08:22)
[2017-11-08] MEDS: Multivitamin W/ Minerals 1 TAB PER TUBE SCH (08:23)
[2017-11-08] MEDS: Enoxaparin Sodium 40 MG/0.4 ML SYRINGE SC SCH (08:23)
--- NOTE | 2017-11-08 12:23 | PRG ---
DATE OF SERVICE: 11/08/2017 SERVICE: Pulmonary Medicine. INTERVAL HISTORY: The patient is doing outstanding from a respiratory standpoint. He is on room air . His speech is improving a little bit. He remains minimally tachycardic. That being said, he has been weaned off of his Precedex at this time for several hours. He is perfectly cool, calm and colle cted. There is no significant interval history. PHYSICAL EXAMINATION: VITAL SIGNS: Afebrile, pulse 71, blood pressure 107/65, respirations 17, saturation 93% on room air. GENERAL: Patient is awake, alert, in no apparent distress. LUNGS: Excellent air entry. There is no prolonged expiratory phase. Rhonchi are present, but clear with cough. HEART: Normal rate, regular. ABDOMEN: Soft, nontender, nondistended, bowel sounds positive. MUSCULOSKELETAL: No cyanosis or clubbing. No pitting in the bilateral lower extremities. NEUROLOGIC: Grossly nonfocal. LABORATORY DATA: WBC 8.5, hemoglobin 12.5, platelets 565,000. Basic metabolic profile is essentiall y unremarkable except for potassium of 3.6. AST and ALT are gently trending upward. Urinalysis is u nremarkable. Urine drug screen is positive for benzos and opiates. All hepatitis B, hepatitis C, an d HIV and syphilis serologies are unremarkable. Tracheal aspirate was previously growing Haemophilus influenza, but repeat blood cultures were negative x2. ASSESSMENT: 1. Metabolic encephalopathy, resolved. 2. Delirium tremens, severe. 3. Acute hypoxic respiratory failure, resolved. 4. Community-acquired pneumonia secondary to Haemophilus influenza. 5. Acute pancreatitis, resolved. 6. Severe sepsis. PLAN: The patient can successfully transition out of the ICU to the medical floor. Pulmonary will c chelsy to follow for the time being. We will start working on getting him up to chair and working o n his strength. I will get physical therapy involved, because he does remain quite weak. Speech is following him and should continue to do so as the swallow slightly impaired still. I will give him a nother dose of potassium.
[2017-11-08] MEDS: Dextrose 5% in Water 500 ML IV SCH (19:43)
[2017-11-09] MEDS: metroNIDAZOLE 500 MG in Premix Bag 1 BAG IVPB SCH (02:24)
[2017-11-09 05:10] LABS: ALT (SGPT) 81 U/L (8-55); AST (SGOT) 92 U/L (5-34); Alkaline Phosphatase 85 U/L (40-150); Anion Gap 13 mmol/L (10-20); BUN (Urea Nitrogen) 10 mg/dL (8.9-20.6); Bilirubin, Total 0.7 mg/dL (0.2-1.2); Calc. Creatinine Clearance 155 mL/min (70-130); Calcium 9.2 mg/dL (7.8-10.44); Carbon Dioxide 24 mmol/L (22-29); Chloride 103 mmol/L (98-107); Estimated GFR-MDRD Greater than 90; Globulin 3.8 g/dL (2.4-3.5); Magnesium 2.1 mg/dL (1.6-2.6); Phosphorus 3.2 mg/dL (2.3-4.7); Protein, Total 7.1 g/dL (6.0-8.3)
--- NOTE | 2017-11-09 06:56 | PDOC.FM ---
- Subjective Subjective: Patient doing well this morning with no complaints. No adverse events overnight. - Objective MAR Reviewed: Yes Vital Signs & Weight: Vital Signs (12 hours) Temp Pulse Resp BP Pulse Ox 11/09/17 05:53 99.8 F H 70 18 120/76 11/09/17 00:26 99.7 F H 78 16 115/71 11/08/17 19:54 99.9 F H 75 16 98 11/08/17 19:19 99.9 F H 75 16 119/71 98 Weight Admit Weight 70.307 kg Weight 70.307 kg Most Recent Monitor Data Heart Rate from ECG 78 NIBP 113/71 NIBP BP-Mean 79 Respiration from ECG 19 SpO2 96 I&O: 11/07/17 11/08/17 11/09/17 06:59 06:59 06:59 Intake Total 4156.1 1704.3 1936.8 Output Total 2585 1150 1100 Balance 1571.1 554.3 836.8 Result Diagrams: 11/08/17 05:30 11/09/17 04:30 <Danay Andujar - Last Filed: 11/09/17 11:06> - Objective Vital Signs & Weight: Vital Signs (12 hours) Temp Pulse Resp BP Pulse Ox 11/09/17 11:53 98.5 F 81 20 102/61 95 11/09/17 09:02 97 11/09/17 08:00 99.4 F 82 16 102/65 96 11/09/17 05:53 99.8 F H 70 18 120/76 Weight Admit Weight 70.307 kg Weight 70.307 kg Most Recent Monitor Data Heart Rate from ECG 78 NIBP 113/71 NIBP BP-Mean 79 Respiration from ECG 19 SpO2 96 I&O: 11/08/17 11/09/17 11/10/17 06:59 06:59 06:59 Intake Total 1704.3 1936.8 Output Total 1150 1100 Balance 554.3 836.8 Result Diagrams: 11/08/17 05:30 11/09/17 04:30 <Yennifer Jeong - Last Filed: 11/09/17 15:38> Phys Exam - Physical Examination Constitutional: NAD Respiratory: clear to auscultation bilateral Cardiovascular: RRR Gastrointestinal: soft, non-tender Neurological: moves all 4 limbs Psychiatric: normal affect, A&O x 3 Skin: no rash <Danay Andujar - Last Filed: 11/09/17 11:06> Dx/Plan (1) Delirium tremens Code(s): F10.231 - ALCOHOL DEPENDENCE WITH WITHDRAWAL DELIRIUM Status: Resolved Plan: s/p extubation and sedation. Pt was sedated and intubated for 6 days. He is asymptomatic. Vitals are stable. No longer needing prn medications. We will await speech therapy recommendations for advancing diet, otherwise pt is quite stable for discharge. (2) Alcohol withdrawal syndrome Code(s): F10.239 - ALCOHOL DEPENDENCE WITH WITHDRAWAL, UNSPECIFIED Status: Acute QualifierTitle: Complication of substance-induced condition: with delirium Qualified Code(s): F10.231 - Alcohol dependence with withdrawal delirium Plan: Same as above. (3) Hospital-acquired bacterial pneumonia Code(s): J15.9 - UNSPECIFIED BACTERIAL PNEUMONIA Status: Acute Plan: antibiotic day 7. Tracheal aspirate grew H. flu. Will continue treatment with Levaquin for 7 days. (4) Hypokalemia Code(s): E87.6 - HYPOKALEMIA Status: Acute Plan: Potassium is 3.3 today. Will provide po replacement - Plan Plan: Will request assistance for outpatient resources and financial assistance. <Danay Andujar - Last Filed: 11/09/17 11:06> Attending Addendum - Attending Addendum I personally evaluated the patient and discussed the management with Dr. Andujar I agree with the History, Examination, Assessment and Plan documented above with any addition or exceptions noted below- Patient without complaints. Denies any tremors, abdominal pain, N/V. Tolerating diet. Ambulating in halls. Afebrile VSS A/P: 1) Acute alcoholic pancreatitis- resolved, 2) Alcohol DTs- resolved; has not had any agitation/tremor. Off all sedation for last 24 hours. Wants to go home. Possible discharge later today versus tomorrow. <Yennifer Jeong - Last Filed: 11/09/17 15:38>
[2017-11-09] MEDS ORDERED: Potassium Chloride 20 MEQ TAB PO SCH (08:00)
[2017-11-09] MEDS ORDERED: Potassium Chloride 10 MEQ TAB PO SCH (08:15)
[2017-11-09] MEDS: Multivitamin W/ Minerals 1 TAB PER TUBE SCH (08:35)
[2017-11-09] MEDS: Folic Acid 1 MG TAB PER TUBE SCH (08:35)
[2017-11-09] MEDS: Enoxaparin Sodium 40 MG/0.4 ML SYRINGE SC SCH (08:36)
[2017-11-09 16:10] VITALS: BP 112/61; TEMP 99
--- NOTE | 2017-11-10 14:35 | PQF ---
MELODY TOSCANO AMANDA MD *r [id number] CLINICAL DOCUMENTATION CLARIFICATION FORM: POST DISCHARGE Addendum to original discharge summary date: ____ Late entry note date: __ DATE: 11/10/2017 ATTN: DR. MCMANUS Please exercise your independent, professional judgment in responding to the clarification form. Clinical indicators are provided on the bottom of this form for your review Please check appropriate box(s): [x ] Aspiration Pneumonia [ ] Aspiration Bronchitis [ ] Empirically treating Gram Negative Pneumonia [ ] Empirically treating Anaerobic Pneumonia [ ] Pneumonia secondary to (specify organism / underlying disease) [ ] Simple Pneumonia (community acquired - nosocomial) [ ] Bronchopneumonia [ ] Pneumonia of unknown etiology [ ] Other diagnosis [ ] Unable to determine ( ) Mechanical Vent - Associated In addition, please specify: Present on Admission (POA): [ ] Yes [ x] No [ ] Unable to determine For continuity of documentation, please document condition throughout progress notes and discharge summary. Thank You. CLINICAL INDICATORS - SIGNS / SYMPTOMS / LABS 11/01 - ET/ VENT 11/03 PN - FEVER, "RADIOGRAPH SUGGESTIVE OF SOME BILATERAL ATELECTASIS, COVER WITH ANTIBIOTICS 11/06 CHEST XR - PLEURAL EFFUSION, LEFT LOWER LOBE ATELECTASIS, PNEUMONIA 11/07 PN - COMMUNITY -ACQUIRED PNEUMONIA SECONDARY TO HAEMOPHILUS INFLUENZA RISK FACTORS MECHANICAL VENT TOBACCO ABUSE METABOLIC ENCEPHALOPATHY ALCOHOLIC PANCREATITIS ACUTE HYPOXIC RESPIRATORY FAILURE TREATMENTS: Antibiotics Serial CXRs (This form is maintained as a part of the permanent medical record) 2014 [employer] All Rights Reserved Jacey Hartman, [facility], [facility] [email or web address] [phone] [email or web address]
== END 2017-11-09 18:17 | disposition home or self-care (01) | DRG 438 ==
LOC: ERS 12:08 → ONC 15:06 → CCU 10-31 17:16 → T4-A 11-08 14:01
PROVIDERS: ADMIT Family Medicine; ATTEND Family Medicine
PROC: 0BH17EZ Insertion of Endotracheal Airway into Trachea, Via Natural or Artificial Opening (ICD-10-PCS; principal; 2017-10-29)
PROC: 5A1955Z Respiratory Ventilation, Greater than 96 Consecutive Hours (ICD-10-PCS; 2017-10-29)
DX: K85.20 Alcohol induced acute pancreatitis without necrosis or infection (principal); J96.01 Acute respiratory failure with hypoxia; J69.0 Pneumonitis due to inhalation of food and vomit; G93.41 Metabolic encephalopathy; J91.8 Pleural effusion in other conditions classified elsewhere; D61.818 Other pancytopenia; F10.231 Alcohol dependence with withdrawal delirium; E87.0 Hyperosmolality and hypernatremia; E46 Unspecified protein-calorie malnutrition; J98.11 Atelectasis; D69.6 Thrombocytopenia, unspecified; K86.0 Alcohol-induced chronic pancreatitis; Z23 Encounter for immunization; E88.09 Other disorders of plasma-protein metabolism, not elsewhere classified; L27.0 Generalized skin eruption due to drugs and medicaments taken internally; T36.0X5A Adverse effect of penicillins, initial encounter; F17.210 Nicotine dependence, cigarettes, uncomplicated; E87.6 Hypokalemia; E83.39 Other disorders of phosphorus metabolism; Z68.25 Body mass index [BMI] 25.0-25.9, adult
CPT/HCPCS: 36415; 71010; 74177; 76705; 80048; 80053; 80061; 80076; 80306; 81003; 81015; 82550; 82553; 82607; 82746; 82805; 83605; 83615; 83690; 83735; 84100; 84450; 84460; 84484; 85025; 85610; 85730; 86704; 86706; 86780; 86803; 87040; 87070; 87077; 87086; 87149; 87205; 87340; 87389; 89220; 93005; 94002; 94003; 94760; 96361; 96374; 96375; 99406; A4216; C9113; G8978-GP-CH; G8979-GP-CH; G8980-GP-CH; G8996-GN-CK; G8997-GN-CI; J0131; J1630; J1650; J1940; J1956; J2060; J2250; J2270; J2405; J2543; J2550; J2704; J2920; J3360; J3411; J3475; J3480; J7042; J7050

== ENCOUNTER 2018-04-16 22:18 | Emergency (ER) | payer SELFPAY ==
[2018-04-16 22:51] LABS: Bilirubin Negative (Negative); Blood, Urine Negative (Negative); Clarity CLEAR (Clear); Glucose, Urine (Dipstick) Negative (Negative); Leukocyte Negative (Negative); Nitrite Negative (Negative); Protein, Urine (Dipstick) Trace mg/dL (Neg-Trace); Specific Gravity, Urine 1.023 (1.002-1.036)
[2018-04-16] MEDS ORDERED: Lidocaine 1% w/Epinephrine 1:100K 20 ML VIAL ONE (23:01)
[2018-04-16] MEDS ORDERED: HYDROcodone/Acetaminophen 10/325 mg Tablet ONE (23:15)
[2018-04-16] MEDS ORDERED: Ibuprofen 800 MG TAB ONE (23:15)
== END 2018-04-16 23:57 | disposition home or self-care (01) ==
LOC: ERS 22:18
DX: L02.214 Cutaneous abscess of groin (principal); B95.8 Unspecified staphylococcus as the cause of diseases classified elsewhere; F17.210 Nicotine dependence, cigarettes, uncomplicated
CPT/HCPCS: 10060; 81003; 87070; 87077; 87086; 87186; 87205; J2001

== ENCOUNTER 2018-04-19 21:39 | Emergency (ER) | payer SELFPAY | END 2018-04-19 23:29 | disposition home or self-care (01) | LOC: ERS 21:39 | DX: Z48.817 Encounter for surgical aftercare following surgery on the skin and subcutaneous tissue (principal); G40.909 Epilepsy, unspecified, not intractable, without status epilepticus; F17.210 Nicotine dependence, cigarettes, uncomplicated | CPT/HCPCS: 99282 ==